=== PATIENT | male | born 1935 | race Caucasian/White ===

== ENCOUNTER → 2016-04-11 | Outpatient (CLI) | payer MEDICARE, OTHER ==
--- NOTE | 2016-04-11 10:39 | RAD ---
EXAM DESCRIPTION: XR KNEE 4 OR MORE VIEWS CLINICAL HISTORY: 80 y/o ,M, PAIN IN LEFT KNEE COMPARISON: None. IMPRESSION: Three views of the left knee demonstrate tricompartment degenerative change most pronounced within the lateral compartment of the left knee and along the lateral facet of the patellofemoral joint. Osteophyte formation is noted. No evidence of fracture or osseous lesion. Small joint effusion noted. Electronically signed by: Jose Angel Pereira MD 04/11/2016 10:38
--- NOTE | 2016-04-11 10:41 | RAD ---
EXAM DESCRIPTION: Pelvis series. CLINICAL HISTORY: Left hip pain COMPARISON: None. TECHNIQUE: One view was submitted for evaluation. FINDINGS: The pelvic ring is intact on today's study. Right hip arthroplasty. 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 Left hip joint space is grossly unremarkable. Mild degenerative change of the lower lumbar spine. IMPRESSION: The joint space of the left hip is fairly preserved on today's AP radiograph of pelvis. No osteophyte formation. Electronically signed by: Jose Angel Pereira MD 04/11/2016 10:39
== END | disposition home or self-care (01) ==
LOC: RAD 09:24
PROVIDERS: ATTEND Orthopaedic Surgery
DX: M25.562 Pain in left knee (principal); M25.552 Pain in left hip

== ENCOUNTER 2016-05-27 20:13 | Emergency (ER) | payer MEDICARE, OTHER ==
[2016-05-27 20:35] VITALS: O2SAT 98
--- NOTE | 2016-05-27 20:47 | ED.PDOC ---
History of Present Illness - General Chief Complaint: Lower Extremity Injury Stated Complaint: right hip pain Time Seen by Provider: 05/27/16 20:20 Source: patient, RN notes reviewed, Vital Signs reviewed, family Exam Limitations: no limitations - History of Present Illness Initial Comments: Patient reports at about 6pm this evening he missed a step and fell onto his right hip. HE had pain but not bad so went ahead and went to [place] this evening. The pain got progressively worse and he had a hip replacement on that side so he came in to get it checked. He was ambulatory. No numbness or tingling. Occurred: this evening Pain - Lower Extremity: moderate: Left Thigh/Hip Method of Injury: fell Improving Factors: rest Worsening Factors: movement Allergies/Adverse Reactions: Allergies NO KNOWN ALLERGY Allergy (Verified 01/31/15 09:06) Home Medications: Ambulatory Orders Bimatoprost 0.01% Opth [Lumigan Opth [place]] 2.5 ml OPHTH BEDTIME 01/31/15 Calcium Citrate-Vitamin D [Calcium Citrate W/Vitamin 250-50 mg-Unit] 1 tab PO BID 01/31/15 Carbidopa-Levodopa [Carbidopa/Levodopa 25-100 mg] 1 tab PO TIDFD 01/31/15 Dutasteride [Avodart] 0.5 mg PO BEDTIME 01/31/15 Multiple Vitamins W/ Minerals [Preservision Areds 2] 1 cap PO BID 01/31/15 Tamsulosin [Flomax] 0.4 mg PO BID 01/31/15 Aspirin [Aspirin Adult Low Dose] 81 mg PO 05/27/16 Proscar 05/27/16 Review of Systems - Review of Systems Constitutional: States: no symptoms reported EENTM: States: no symptoms reported Respiratory: States: no symptoms reported Cardiology: States: no symptoms reported Gastrointestinal/Abdominal: States: no symptoms reported Musculoskeletal: States: see HPI, joint pain Skin: States: no symptoms reported Neurological: States: no symptoms reported. Denies: numbness, paresthesia, tingling, weakness Endocrine: States: no symptoms reported Hematologic/Lymphatic: States: no symptoms reported Past Medical History (General) - Patient Medical History Hx Stroke: No Hx Cardiac Disorders: No Hx Congestive Heart Failure: No Hx Diabetes: No Hx Cancer: No Hx Hepatitis C: No Hx MRSA: Yes - 2016 Arm MRSA Source:: Wound Surgical History: tonsillectomy - Vaccination History Hx Influenza Vaccination: Yes Hx Pneumococcal Vaccination: Yes - Social History Hx Tobacco Use: No Hx Alcohol Use: No Hx Substance Use: No Hx Substance Use Treatment: No Hx Depression: No Hx Physical Abuse: No Hx Emotional Abuse: No Hx Suspected Abuse: No - Female History Patient : No - Triage Comment ED Triage Comment: fell onto rt hip, ambulatory for awhile, then pain increased Family Medical History - Family History Mother Family History: Unknown Living Status: Physical Exam - Physical Exam General Appearance: Alert, Comfortable, No apparent distress, Well Developed, Well Groomed, Well Hydrated, Well Nourished Neck: full range of motion, supple, normal inspection Cardiovascular/Respiratory: normal peripheral pulses, no respiratory distress Thigh/Hip: bone tenderness - Right mid thigh, limited ROM - due to pain, pain Leg: normal inspection, non-tender, no evidence of injury, normal ROM Knee: normal inspection, non-tender, no evidence of injury, normal ROM Ankle: normal inspection, non-tender, no evidence of injury, normal ROM Foot: normal inspection, non-tender, no evidence of injury, normal ROM Neuro/Tendon: normal sensation, normal motor functions, normal tendon functions Mental Status: alert, oriented x 3 Skin: normal color, warm/dry Progress - Progress Progress: 05/27/16 21:09 Discussed results with patient and . Will treat conservatively at home with ice and OTC pain medications. - EKG/XRAY/CT XRAY: hip - negative, no acute findings. Departure - Departure Clinical Impression: Contusion of hip or thigh, right Time of Disposition: 21:10 Disposition: Discharge to Home or Self Care Condition: Good Departure Forms: ED Discharge - Pt. Copy, Patient Portal Self Enrollment Instructions: DI for Contusion Diet: resume usual diet Activity: increase activity as tolerated Referrals: Andrea Day MD [Primary Care Provider] - 1-5 Days Home Medications: Ambulatory Orders Bimatoprost 0.01% Opth [Lumigan Opth [place]] 2.5 ml OPHTH BEDTIME 01/31/15 Calcium Citrate-Vitamin D [Calcium Citrate W/Vitamin 250-50 mg-Unit] 1 tab PO BID 01/31/15 Carbidopa-Levodopa [Carbidopa/Levodopa 25-100 mg] 1 tab PO TIDFD 01/31/15 Dutasteride [Avodart] 0.5 mg PO BEDTIME 01/31/15 Multiple Vitamins W/ Minerals [Preservision Areds 2] 1 cap PO BID 01/31/15 Tamsulosin [Flomax] 0.4 mg PO BID 01/31/15 Aspirin [Aspirin Adult Low Dose] 81 mg PO 05/27/16 Proscar 05/27/16
--- NOTE | 2016-05-27 21:04 | RAD ---
PROCEDURE: Hip,Right 2 Views Clinical History: fell onto hip Indication: Same as above Comparison: 02/01/2015. Technique: 2.0 views of the right hip. Findings: There is no evidence of acute fractures or dislocations involving the bones of the right hip joint and the adjacent pelvic bones. There is intact right hip arthroplasty Impression: Negative for acute findings involving the right hip. Location of Interpretation: Teleradiology Electronically signed by: Karsten Das MD 05/27/2016 9:04 PM CDT
[2016-05-27 21:30] VITALS: BP 145/80
[2016-05-27 21:31] VITALS: TEMP 97
== END 2016-05-27 21:31 | disposition home or self-care (01) ==
LOC: ER 20:13
DX: S70.01XA Contusion of right hip, initial encounter (principal); S70.11XA Contusion of right thigh, initial encounter; Z96.641 Presence of right artificial hip joint; Z79.899 Other long term (current) drug therapy; Z79.82 Long term (current) use of aspirin; Z86.14 Personal history of Methicillin resistant Staphylococcus aureus infection; W10.9XXA Fall (on) (from) unspecified stairs and steps, initial encounter; Y92.9 Unspecified place or not applicable

== ENCOUNTER 2017-02-12 13:27 | Emergency (ER) | payer MEDICARE, OTHER ==
--- NOTE | 2017-02-12 13:53 | RAD ---
EXAM DESCRIPTION: Chest,2 Views CLINICAL HISTORY: food bolus COMPARISON: February 02, 2011 TECHNIQUE: PA/lateral FINDINGS: The lungs are well expanded and clear. No infiltrates or effusions or masses are noted. The heart is normal in size and shape with no evidence of vascular congestion. Aortic arch and descending aorta is tortuous The inder and mediastinum demonstrate normal contours. A moderate hiatal hernia with an air-fluid level in the retrocardiac region is unchanged from 2011 study. The bony spine and chest wall is normal for age in appearance. IMPRESSION: No acute cardiopulmonary disease with a persistent large retrocardiac hiatal hernia with air-fluid level, unchanged from 2011. Electronically signed by: Alcon Dunn MD 02/12/2017 1:51 PM [employer]TACT WORK[employer]
--- NOTE | 2017-02-12 13:54 | RAD ---
EXAM DESCRIPTION: Neck,Soft Tissue CLINICAL HISTORY: 81 years Male, food bolus COMPARISON: None. FINDINGS: Soft tissue views of the neck demonstrate advanced degenerative disc disease at C5-6 and C6-7 with posterior bony ridging at C6-7. The airway and soft tissues of the hypopharynx and larynx and proximal trachea appear unremarkable. No prevertebral soft tissue swelling or mass is seen. IMPRESSION: Multiple examination. Electronically signed by: Alcon Dunn MD 02/12/2017 1:53 PM PROSTHODONTIST/OWNER
--- NOTE | 2017-02-12 13:55 | RAD ---
EXAM DESCRIPTION: XR ABDOMEN 1 VIEW (KUB) CLINICAL HISTORY: food bolus COMPARISON: None Available. TECHNIQUE: KUB FINDINGS: A single view of the abdomen demonstrates moderate amount of stool throughout the colon without eduard fecal impaction or an no evidence of small bowel obstruction. Prior right hip replacement is noted with moderate degenerative changes in the lumbar spine. No soft tissue masses or unusual calculi noted. IMPRESSION: Negative examination. Electronically signed by: Alcon Dunn MD 02/12/2017 1:54 PM LENS MOUNTER
[2017-02-12 14:05] VITALS: TEMP 97.3
--- NOTE | 2017-02-12 14:29 | ED.PDOC ---
History of Present Illness - General Chief Complaint: ENT Problem Stated Complaint: food stuck in throat Time Seen by Provider: 02/12/17 13:27 Source: patient, RN notes reviewed, Vital Signs reviewed, family Exam Limitations: no limitations Additional Information: At [facility] [employer] [place] today - salad, roast beef, and cake. Feels food is stuck. Has been able to cough and regurgitate some food particles but he still feels the food is stuck. No respiratory distress. - History of Present Illness Timing/Duration: abrupt Severity: moderate EENT Location: throat Prearrival Treatment: no prearrival treatment Improving Factors: nothing Worsening Factors: nothing Associated Symptoms: denies symptoms Allergies/Adverse Reactions: Allergies NO KNOWN ALLERGY Allergy (Verified 02/12/17 14:06) Home Medications: Ambulatory Orders Bimatoprost 0.01% Ophth [Lumigan Ophth [place]] 2.5 ml OPHTH BEDTIME 01/31/15 Calcium Citrate-Vitamin D [Calcium Citrate W/Vitamin 250-50 mg-Unit] 1 tab PO BID 01/31/15 Carbidopa-Levodopa [Carbidopa/Levodopa 25-100 mg] 1 tab PO TIDFD 01/31/15 Dutasteride [Avodart] 0.5 mg PO BEDTIME 01/31/15 Multiple Vitamins W/ Minerals [Preservision Areds 2] 1 cap PO BID 01/31/15 Tamsulosin [Flomax] 0.4 mg PO BID 01/31/15 Aspirin [Aspirin Adult Low Dose] 81 mg PO 05/27/16 Proscar 05/27/16 Review of Systems - Review of Systems Constitutional: States: no symptoms reported EENTM: States: no symptoms reported Respiratory: States: no symptoms reported Cardiology: States: no symptoms reported Gastrointestinal/Abdominal: States: see HPI Genitourinary: States: no symptoms reported Musculoskeletal: States: no symptoms reported Skin: States: no symptoms reported Neurological: States: no symptoms reported Endocrine: States: no symptoms reported Hematologic/Lymphatic: States: no symptoms reported Past Medical History (General) - Patient Medical History Hx Stroke: No Hx Cardiac Disorders: No Hx Congestive Heart Failure: No Hx Diabetes: No Hx Cancer: No Hx Hepatitis C: No Hx MRSA: Yes - 2016 Arm Hx Other PMH: Yes - BPH, Parkinson's MRSA Source:: Wound Surgical History: other - Vaccination History Hx Influenza Vaccination: Yes Hx Pneumococcal Vaccination: Yes - Social History Hx Tobacco Use: No Hx Alcohol Use: No Hx Substance Use: No Hx Substance Use Treatment: No Hx Depression: No Hx Physical Abuse: No Hx Emotional Abuse: No Hx Suspected Abuse: No - Female History Patient : No Family Medical History - Family History Mother Family History: Unknown Living Status: Physical Exam - Physical Exam General Appearance: Alert, Anxious, No apparent distress Eye Exam: bilateral normal Nasal Exam: normal inspection Throat Exam: normal mouth inspection - controlling secretions for the most part. Unable to drink liquids. Neck: full range of motion, supple Cardiovascular/Respiratory: regular rate, rhythm, no respiratory distress Neurologic: hadoop admin II-XII nml as tested, no motor/sensory deficits, alert, oriented x 3 Skin Exam: normal color Progress - Progress Progress: 02/12/17 15:39 Attempted Glucagon 1 mg IV, Zofran 4 mg IV, and 500 ml NS IV bolus with no improvement. Patient needs to be transferred to facility with an endoscopist. Departure - Departure Clinical Impression: Food in esophagus causing other injury, sequela Time of Disposition: 15:40 Disposition: Discharge to Home or Self Care Condition: Fair Departure Forms: ED Discharge - Pt. Copy, Patient Portal Self Enrollment Instructions: DI for Ear Pain-Adult Referrals: Andrea Day MD [Primary Care Provider] - 1-5 Days Home Medications: Ambulatory Orders Bimatoprost 0.01% Ophth [Lumigan Ophth [place]] 2.5 ml OPHTH BEDTIME 01/31/15 Calcium Citrate-Vitamin D [Calcium Citrate W/Vitamin 250-50 mg-Unit] 1 tab PO BID 01/31/15 Carbidopa-Levodopa [Carbidopa/Levodopa 25-100 mg] 1 tab PO TIDFD 01/31/15 Dutasteride [Avodart] 0.5 mg PO BEDTIME 01/31/15 Multiple Vitamins W/ Minerals [Preservision Areds 2] 1 cap PO BID 01/31/15 Tamsulosin [Flomax] 0.4 mg PO BID 01/31/15 Aspirin [Aspirin Adult Low Dose] 81 mg PO 05/27/16 Proscar 05/27/16 Additional Instructions: GO to [facility] for Endoscopist. Transfer to Outside Facility - Transfer Information Accepting Provider:: Dr. Rey Medina Accepting Facility: [facility] Reason for Transfer: required specialist not available - Endoscopist to assess for food bolus
[2017-02-12] MEDS ORDERED: ONDANSETRON INJ 4 MG/2 ML VIAL IV ONE (14:31)
[2017-02-12] MEDS ORDERED: SODIUM CHLORIDE 0.9% 1000ML 500 ML IVS ONE (14:32)
[2017-02-12] MEDS ORDERED: GLUCAGON INJ 1 MG VIAL IV ONE (14:32)
[2017-02-12 16:12] VITALS: BP 139/80; O2SAT 96
== END 2017-02-12 16:12 | disposition short-term general hospital (02) ==
LOC: ER 13:27
DX: T18.128A Food in esophagus causing other injury, initial encounter (principal); G20 Parkinson's disease; Z86.14 Personal history of Methicillin resistant Staphylococcus aureus infection
CPT/HCPCS: 70360; 71020; 74000; J1610; J2405; J7030

== ENCOUNTER → 2017-05-21 | Outpatient (CLI) | payer MEDICARE, OTHER | LOC: LAB.O 14:22 | PROVIDERS: ATTEND Urology | DX: R31.0 Gross hematuria (principal) ==

== ENCOUNTER 2018-01-29 14:48 | Inpatient (IN) | payer MEDICARE, OTHER ==
[2018-01-29] MEDS ORDERED: MORPHINE SULFATE INJ 10 MG/ML VIAL IV ONE (15:11)
--- NOTE | 2018-01-29 15:24 | RAD ---
EXAM DESCRIPTION: Left knee, 2 views CLINICAL HISTORY: Fall injury. Knee pain FINDINGS/ IMPRESSION: Tricompartmental joint space narrowing. Marginal osteophytes lateral tibia. Severe arthrosis patellofemoral with small region of subchondral cystic change in the patella. Prominent marginal osteophytes. Minimal suprapatellar fluid No fracture Electronically signed by: Alcon Sepulveda MD 01/29/2018 3:23 PM [facility]
--- NOTE | 2018-01-29 15:25 | RAD ---
EXAM DESCRIPTION: Was, single view CLINICAL HISTORY: Fall injury with hip pain FINDINGS/ IMPRESSION: Transcervical left femoral neck fracture, Garden type IV Right hip arthroplasty without acute periprosthetic fracture or osteolysis No acute fracture of the pelvis. Mild osteoarthritis of the sacroiliac joints Electronically signed by: Alcon Sepulveda MD 01/29/2018 3:24 PM [facility]
--- NOTE | 2018-01-29 15:27 | RAD ---
EXAM DESCRIPTION: Hip,Left 2 Views CLINICAL HISTORY: fall with pain COMPARISON: None. TECHNIQUE: 2 views left FINDINGS: The pelvis is imaged is intact. A left femoral neck fracture is demonstrated. The hip is in slight varus. Soft tissue swelling is observed adjacent to the hip. Degenerative changes are observed in the lower lumbar spine. IMPRESSION: Left femoral neck fracture. Electronically signed by: Cruz Clark MD 01/29/2018 3:25 PM [facility]
--- NOTE | 2018-01-29 15:56 | ED.PDOC ---
History of Present Illness - General Chief Complaint: Lower Extremity Injury Stated Complaint: fall left hip pain Time Seen by Provider: 01/29/18 14:54 Source: patient, family Exam Limitations: no limitations - History of Present Illness Initial Comments: The patient is a 82-year-old male presenting to the emergency room secondary to a fall at home. He went on his left side and has pain in his left hip. He does have a history of Parkinson's and has had multiple frequent falls in the past.no other areas of pain. He did not hit his head. He is pleasant and cooperative. Timing/Duration: momentarily Severity: severe Improving Factors: immobilization Worsening Factors: movement Associated Symptoms: denies symptoms Allergies/Adverse Reactions: Allergies NO KNOWN ALLERGY Allergy (Verified 02/12/17 14:06) Home Medications: Ambulatory Orders Bimatoprost 0.01% Ophth [Lumigan Ophth [place]] 2.5 ml OPHTH BEDTIME 01/31/15 Calcium Citrate-Vitamin D [Calcium Citrate W/Vitamin 250-50 mg-Unit] 1 tab PO BID 01/31/15 Carbidopa-Levodopa [Carbidopa/Levodopa 25-100 mg] 1 tab PO TIDFD 01/31/15 Dutasteride [Avodart] 0.5 mg PO BEDTIME 01/31/15 Multiple Vitamins W/ Minerals [Preservision Areds 2] 1 cap PO BID 01/31/15 Tamsulosin [Flomax] 0.4 mg PO BID 01/31/15 Aspirin [Aspirin Adult Low Dose] 81 mg PO 05/27/16 Proscar 05/27/16 Review of Systems - Review of Systems Constitutional: States: no symptoms reported EENTM: States: no symptoms reported Respiratory: States: no symptoms reported Cardiology: States: no symptoms reported Gastrointestinal/Abdominal: States: no symptoms reported Genitourinary: States: no symptoms reported Musculoskeletal: States: see HPI Skin: States: no symptoms reported Neurological: States: see HPI Endocrine: States: no symptoms reported All other Systems: No Change from Baseline Past Medical History (General) - Patient Medical History Hx Stroke: No Hx Asthma: No Hx of COPD: No Hx Cardiac Disorders: No Hx Congestive Heart Failure: No Hx Thyroid Disease: No Hx Diabetes: No Hx Renal Disease: No Hx Cancer: No Hx of HIV: No Hx Hepatitis C: No Hx MRSA: No MRSA Source:: Wound - Vaccination History Hx Tetanus, Diphtheria Vaccination: Yes Hx Influenza Vaccination: Yes Hx Pneumococcal Vaccination: Yes Immunizations Up to Date: No - Social History Hx Tobacco Use: No Hx Chewing Tobacco Use: No Hx Alcohol Use: No Hx Substance Use: No Hx Substance Use Treatment: No Hx Depression: No Feels Threatened In Home Enviroment: No Feels Threatened In a Relationship: No Hx Physical Abuse: No Hx Emotional Abuse: No Hx Suspected Abuse: No - Female History Patient is a Female of Child Bearing Age (10 -59 yrs old): No Patient : No Family Medical History - Family History Mother Family History: Unknown Living Status: Hx Family Asthma: No Hx Family Congestive Heart Failure: No Physical Exam - Physical Exam General Appearance: Alert, Obvious distress Eye Exam: bilateral normal Ears, Nose, Throat: hearing grossly normal, normal ENT inspection, normal pharynx Neck: non-tender, supple Respiratory: lungs clear, normal breath sounds, no respiratory distress, no accessory muscle use Cardiovascular/Chest: normal peripheral pulses, regular rate, rhythm, no edema Peripheral Pulses: radial,right: 2+, radial,left: 2+, dorsalis pedis,right: 2+, dorsalis pedis,left: 2+ Gastrointestinal/Abdominal: non tender, soft Rectal Exam: deferred Back Exam: no CVA tenderness, no vertebral tenderness Extremity: no pedal edema, no calf tenderness, normal capillary refill, other - left hip painwith palpation and movement Neurologic: house carpenter helper II-XII nml as tested, alert, normal mood/affect, oriented x 3, other - movement issues related to Parkinson's Skin Exam: normal color Comments: Vital Signs - 24 hr 01/29/18 15:00 Temperature 97 F L Respiratory 20 Rate Blood Pressure 181/88 [Left Arm] O2 Sat by Pulse 97 Oximetry Progress - Progress Progress: 01/29/18 15:56 the patient is an 82-year-old male presenting to the emergency room secondary to a fall at home. He appears to have sustained a transcervical left femoral neck fracture Garden type IV, according to the imaging report. The patient has received IV pain medications. Laboratory workup for preoperative purposes being performed. Admit for pain management and subsequent repair. Orthopedics has been consulted. - Results/Orders Results/Orders: Laboratory Tests 01/29/18 15:37 WBC 8.1 RBC 4.29 L Hgb 12.9 L Hct 39.2 L MCV 91.3 MCH 30.0 MCHC 33.0 RDW 14.7 H Plt Count 294 MPV 8.1 Absolute Neuts (auto) 6.10 Absolute Lymphs (auto) 1.20 Absolute Monos (auto) 0.50 Absolute Eos (auto) 0.10 Absolute Basos (auto) 0.10 Neutrophils % 76.0 Lymphocytes % 15.3 L Monocytes % 6.8 Eosinophils % 1.2 Basophils % 0.7 other laboratory work is still pending. EKG shows a bifascicular block. Rate is 62 bpm QT interval is borderline at 462. Departure - Departure Clinical Impression: Left displaced femoral neck fracture Disposition: Admit Patient Home Medications: Ambulatory Orders Bimatoprost 0.01% Ophth [Lumigan Ophth [place]] 2.5 ml OPHTH BEDTIME 01/31/15 Calcium Citrate-Vitamin D [Calcium Citrate W/Vitamin 250-50 mg-Unit] 1 tab PO BID 01/31/15 Carbidopa-Levodopa [Carbidopa/Levodopa 25-100 mg] 1 tab PO TIDFD 01/31/15 Dutasteride [Avodart] 0.5 mg PO BEDTIME 01/31/15 Multiple Vitamins W/ Minerals [Preservision Areds 2] 1 cap PO BID 01/31/15 Tamsulosin [Flomax] 0.4 mg PO BID 01/31/15 Aspirin [Aspirin Adult Low Dose] 81 mg PO 05/27/16 Proscar 05/27/16 Decision To Admit - Decistion To Admit Decision to Admit Reason: Medical Nature Decision to Admit Date: 01/29/18 Decision to Admit Time: 15:58
--- NOTE | 2018-01-29 16:42 | HP ---
SUPERVISING PHYSICIAN: Alcon Bautista MD CHIEF COMPLAINT: Left hip pain. HISTORY OF PRESENT ILLNESS: This is an 82 male patient who was in his garage today. There was some wrinkled carpet in there and he tripped over it and fell onto his left side. He had pain in the left hip. He has a significant history of Parkinson's as well as multiple falls. He actually just retuned from a bus trip for 9 days in the [place] area. He fell while on the trip but did not hurt himself. He did not hit his head. He was brought to the hospital for evaluation. In the Emergency Room, laboratory was done and showed a sodium of 132, potassium 4. chloride 96, carbon dioxide 26, BUN 17, creatinine 0.79. His serum osmolality was 266.4. Liver enzymes were within normal limits. His urinalysis was within normal limits except he did have 40 urine ketones. CBC showed a white count of 8,100, hemoglobin 12.9, hematocrit 39.2. Chest x-ray showed hiatal hernia with mild pulmonary edema, likely was exaggerated by low lung volume, mild cardiomegaly. Pelvic x-ray shows a transcervical femoral neck fracture, Garden type IV and a right hip arthroplasty without acute periprosthetic fracture or osteolysis. No acute fracture of the pelvis. Mild osteoarthritis of the sacroiliac joints. His left knee x-ray shows no fracture and his hip x-ray shows left femoral neck fracture. Dr. Hill was called from the Emergency Room and agreed to see the patient after admission and I was called to admit the patient to the hospital. PAST MEDICAL HISTORY: 1. Benign prostatic hypertrophy. 2. Parkinson's. 3. Osteoarthritis. 4. Macular degeneration. 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 6. History of lumbar spine osteoarthritis and associated symptoms. PAST SURGICAL HISTORY: 1. Right hip surgery. 2. Right arm surgery. 3. Hernia repair. 4. Adenoidectomy. 5. Bilateral cataract removal. CURRENT MEDICATIONS: Per the EMR and awaiting verification. ALLERGIES: No known drug allergies. SOCIAL HISTORY: He is retired. He has never smoked and denies any ETOH or illicit drug use. REVIEW OF SYSTEMS: Unremarkable except as per history of present illness. PHYSICAL EXAMINATION: VITAL SIGNS: He is afebrile. Heart rate 79, blood pressure 166/80, respiratory rate 20, 02 saturation 93% on room air. GENERAL: This is an 82 year-old male patient lying in his hospital bed. He is in no acute disease. HEENT: Normocephalic and atraumatic. Pupils are equal and reactive. Oropharynx is clear. NECK: Supple without mass. CHEST: Essentially clear to auscultation bilaterally. There is equal rise and fall of the chest with inspiration and expiration. CARDIOVASCULAR: Regular rate and rhythm. ABDOMEN: Soft, nondistended, non-tender. Bowel sounds are positive. EXTREMITIES: He has some pain to palpation over the left lateral hip area. There is no bruising at this time. Bilateral pedal pulses are palpable at +2. NEUROLOGIC: He is awake, alert, and oriented x3. Labs and films are as per the history of present illness. ASSESSMENT: 1. Left femoral neck fracture after same level fall awaiting surgical intervention per Dr. Weinberg, orthopedic surgeon. 2. History of Parkinson's disease. 3. Osteoarthritis. 4. History of benign prostatic hypertrophy. 5. 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 PLAN: We will admit the patient to the hospital. I have initiated Dr. Hill's preoperative order for surgery that is expected to be tomorrow. I have made him n.p.o. at midnight with fluids of D5 normal saline at 100. I have also contacted social sciences lecturer as his will be having surgery in [place] on Friday per Dr. Zuniga. He does have [facility]. I have also ordered some morphine for hs pain control and plan to see patient postoperative procedure tomorrow. We will restart his home medications after they are verified. We will continue t9o monitor the patient closely and follow as needed. Dr. Bautista is the collaborating physician and available for consultation. #[id number]
[2018-01-29] MEDS ORDERED: ceFAZolin SODIUM 2 GM in SODIUM CHLORIDE 0.9% 100ML 100 ML IVPB ONE (17:23)
[2018-01-29] MEDS ORDERED: diphenhydrAMINE HCL 50 MG/ML VIAL IV ONE (17:27)
[2018-01-29] MEDS ORDERED: ACETAMINOPHEN 325 MG TAB PO ONE (17:27)
[2018-01-29] MEDS ORDERED: ONDANSETRON INJ 4 MG/2 ML VIAL IV PRN (17:30)
[2018-01-29] MEDS ORDERED: SODIUM CHLORIDE 0.9% 500ML 500 ML IVS SCH (17:30)
[2018-01-29] MEDS ORDERED: diphenhydrAMINE HCL 25 MG CAP ONE (17:48)
--- NOTE | 2018-01-29 18:06 | RAD ---
EXAM DESCRIPTION: Chest,1 View CLINICAL HISTORY: Pre-Op COMPARISON: 02/12/2017. FINDINGS: Lung volumes are low. Cardiac silhouette is mildly enlarged. There is a probable moderate hiatal hernia again seen. No pneumothorax. There is mild bilateral increased pulmonary edema. No focal consolidation, accounting for the probable hiatal hernia. IMPRESSION: Hiatal hernia. Mild pulmonary edema is likely exaggerated by low lung volumes. Mild cardiomegaly. Electronically signed by: Greyson Camejo 01/29/2018 6:05 PM [facility]
[2018-01-29] MEDS ORDERED: MORPHINE SULFATE INJ 10 MG/ML VIAL ONE (19:48)
[2018-01-29] MEDS: MORPHINE SULFATE INJ 10 MG/ML VIAL IV PRN ×2 (19:55→22:20)
[2018-01-29] MEDS ORDERED: VANCOMYCIN HCL INJ 1,000 MG in SODIUM CHLORIDE 0.9% 250ML 250 ML IVPB ONE (20:00)
[2018-01-29] MEDS: IV SET AND CAP CHANGE INJ INJ SCH (21:23)
[2018-01-29] MEDS: DEX 5% W/NACL 0.9% 1000ML 1,000 ML IVS PRN (22:19)
[2018-01-29] MEDS ORDERED: BACITRACIN 0.9 GM UD PCKT ONE (22:42)
[2018-01-30] MEDS ORDERED: VANCOMYCIN HCL INJ 1,000 MG in SODIUM CHLORIDE 0.9% 250ML 250 ML IVPB ONE (07:00)
[2018-01-30] MEDS ORDERED: ceFAZolin SODIUM 2 GM in SODIUM CHLORIDE 0.9% 100ML 100 ML IVPB ONE (07:00)
[2018-01-30] MEDS ORDERED: PHENYLEPHRINE INJ 1ML 10 MG/ML VIAL ONE (07:00)
[2018-01-30] MEDS ORDERED: ePHEDrine SULF 50 MG/ML ONE (07:00)
[2018-01-30] MEDS ORDERED: raNITIdine HCL INJ 25 MG/ML VIAL ONE (07:00)
[2018-01-30] MEDS ORDERED: PROPOFOL 200 MG/20 ML VIAL IV ONE (07:00)
[2018-01-30] MEDS ORDERED: METOCLOPRAMIDE HCL INJ 10 MG/2 ML VIAL ONE (07:00)
[2018-01-30] MEDS ORDERED: TRANEXAMIC ACID 1,000 MG/10 ML VIAL IV ONE (07:00)
[2018-01-30] MEDS ORDERED: SODIUM CHLORIDE 0.9% 50 ML VIAL ONE (07:00)
[2018-01-30] MEDS ORDERED: DEXAMETHASONE INJ 10 MG/ML VIAL ONE (07:00)
[2018-01-30] MEDS ORDERED: ceFAZolin SODIUM 2 GRAMS PREMI 50 ML IVPB ONE (07:45)
[2018-01-30] MEDS ORDERED: VANCOMYCIN HCL INJ 1,000 MG VIAL IVPB ONE ×2 (07:45→16:38)
[2018-01-30] MEDS ORDERED: SODIUM CHLORIDE 0.9% 250ML 250 ML ONE ×2 (07:45→16:38)
[2018-01-30] MEDS: MORPHINE SULFATE INJ 10 MG/ML VIAL IV PRN (08:18)
[2018-01-30] MEDS ORDERED: ceFAZolin SODIUM 1 GM VIAL ONE ×3 (08:34→20:29)
[2018-01-30] MEDS ORDERED: SODIUM CHLORIDE 0.9% 100ML 100 ML IVPB ONE (09:05)
[2018-01-30] MEDS ORDERED: TRANEXAMIC ACID 1,000 MG/10 ML VIAL ONE ×2 (09:05)
[2018-01-30] MEDS ORDERED: fentaNYL CITRATE INJ 50 MCG/ML AMP ONE (09:06)
[2018-01-30] MEDS ORDERED: MORPHINE SULF *EPIDURAL* 1 MG/ML VIAL ONE (09:06)
[2018-01-30] MEDS ORDERED: MIDAZOLAM INJ 2 MG/2 ML VIAL ONE (09:06)
[2018-01-30] MEDS ORDERED: BUPIVACAINE 0.5% 30 ML VIAL INJ ONE (09:07)
[2018-01-30] MEDS ORDERED: ELECTROLYTE-A 1,000 ML IVS ONE ×3 (09:19→11:38)
[2018-01-30] MEDS ORDERED: ACETAMINOPHEN IV 1000MG 100 ML ONE (09:46)
[2018-01-30] MEDS ORDERED: KETAMINE HCL 100 MG/ML VIAL ONE (09:50)
[2018-01-30] MEDS: ceFAZolin SODIUM 1 GM VIAL ONE ×2 (10:24→11:27)
[2018-01-30] MEDS: VANCOMYCIN HCL INJ 1,000 MG VIAL IVPB ONE ×2 (10:36→11:27)
[2018-01-30] MEDS: BUPIVACAINE LIPOSOME 13.3 MG/ML VIAL INJ ONE ×2 (10:38→11:35)
[2018-01-30] MEDS: BUPIVACAINE 0.5% 30 ML VIAL INJ ONE ×2 (10:38→11:35)
[2018-01-30] MEDS ORDERED: ceFAZolin SODIUM 2 GRAMS PREMI 2 GM in PREMIX BAG 1 BAG IVPB SCH ×2 (12:15→16:00)
[2018-01-30] MEDS ORDERED: VANCOMYCIN HCL INJ 1,000 MG in SODIUM CHLORIDE 0.9% 250ML 250 ML IVPB SCH (12:30)
[2018-01-30] MEDS ORDERED: ENOXAPARIN SODIUM 30 MG/0.3 ML SYG SUBCU SCH (12:30)
--- NOTE | 2018-01-30 13:04 | RAD ---
EXAM DESCRIPTION: Hip,Left 2 Views CLINICAL HISTORY: post op COMPARISON: January 29, 2018 IMPRESSION: 2 views of the left hip show interval postsurgical changes from hip arthroplasty with cement fixation of the femoral component. No complicating features are seen. Mild soft tissue emphysema from recent surgery is noted. Electronically signed by: Jose Martinez MD 01/30/2018 1:03 PM [facility] [[email or web address]]
[2018-01-30] MEDS ORDERED: MORPHINE SULFATE INJ 10 MG/ML VIAL IM PRN (13:52)
[2018-01-30] MEDS ORDERED: PROMETHAZINE HCL INJ 12.5 MG in SODIUM CHLORIDE 0.9% 50ML 50 ML IVPB PRN (13:52)
[2018-01-30] MEDS ORDERED: NALOXONE HCL INJ 0.4 MG/ML VIAL IV PRN (13:52)
[2018-01-30] MEDS ORDERED: PROMETHAZINE HCL INJ 25 MG in SODIUM CHLORIDE 0.9% 50ML 50 ML IVPB PRN (13:52)
[2018-01-30] MEDS ORDERED: ACETAMINOPHEN 500 MG TAB PO PRN (13:52)
[2018-01-30] MEDS ORDERED: MORPHINE SULFATE INJ 10 MG/ML VIAL IV PRN (13:52)
[2018-01-30] MEDS ORDERED: MORPHINE PCA 1 MG/ML 100 ML BAG IVPB SCH (14:00)
[2018-01-30] MEDS ORDERED: IV SET AND CAP CHANGE INJ INJ SCH (14:00)
[2018-01-30] MEDS ORDERED: ceFAZolin SODIUM 1 GM in SODIUM CHL 0.9% 50ML MIN-BAG+ 50 ML IVPB SCH (16:00)
--- NOTE | 2018-01-30 16:04 | RAD ---
EXAM DESCRIPTION: Pelvis, 1 4 More Views CLINICAL HISTORY: post op COMPARISON: January 29, 2018 IMPRESSION: Single AP view of the pelvis shows interval postsurgical changes from left hip arthroplasty with cement fixation of the femoral component. No complicating features are identified. Right hip bipolar arthroplasty with screw fixation of the acetabular component is again seen. 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 No fracture or dislocation is identified. Electronically signed by: Jose Martinez MD 01/30/2018 4:03 PM [facility]
[2018-01-30] MEDS ORDERED: SODIUM CHL 0.9% 50ML MIN-BAG+ 50 ML IVPB ONE ×2 (16:32→20:29)
[2018-01-30] MEDS: ceFAZolin SODIUM 1 GM in SODIUM CHL 0.9% 50ML MIN-BAG+ 50 ML IVPB SCH (16:44)
[2018-01-30] MEDS: DEX 5% W/NACL 0.9% 1000ML 1,000 ML IVS PRN (16:45)
[2018-01-30] MEDS: VANCOMYCIN HCL INJ 1,000 MG in SODIUM CHLORIDE 0.9% 250ML 250 ML IVPB SCH (18:31)
[2018-01-30] MEDS ORDERED: ENOXAPARIN SODIUM 30 MG/0.3 ML SYG SUBCU ONE (20:28)
[2018-01-30] MEDS: DOCUSATE CALCIUM 240 MG CAP PO SCH (20:52)
[2018-01-30] MEDS: SODIUM CHLORIDE 0.9% (FLUSH) 10 ML SYG IV PRN (20:53)
[2018-01-30] MEDS: ENOXAPARIN SODIUM 30 MG/0.3 ML SYG SUBCU SCH (23:16)
[2018-01-31] MEDS: ceFAZolin SODIUM 1 GM in SODIUM CHL 0.9% 50ML MIN-BAG+ 50 ML IVPB SCH ×2 (01:20→10:30)
[2018-01-31] MEDS ORDERED: VANCOMYCIN HCL INJ 1,000 MG VIAL IVPB ONE (04:20)
[2018-01-31] MEDS ORDERED: SODIUM CHLORIDE 0.9% 250ML 250 ML ONE (04:20)
[2018-01-31] MEDS: VANCOMYCIN HCL INJ 1,000 MG in SODIUM CHLORIDE 0.9% 250ML 250 ML IVPB SCH (06:06)
[2018-01-31] MEDS ORDERED: SODIUM CHL 0.9% 50ML MIN-BAG+ 50 ML IVPB ONE (09:47)
[2018-01-31] MEDS ORDERED: ceFAZolin SODIUM 1 GM VIAL ONE (09:48)
[2018-01-31] MEDS: ENOXAPARIN SODIUM 30 MG/0.3 ML SYG SUBCU SCH ×2 (10:28→22:41)
[2018-01-31] MEDS: MAGNESIUM OXIDE 400 MG TAB PO SCH (10:28)
[2018-01-31] MEDS: HYDROcodone 5MG/APAP 325MG 1 EA TAB PO PRN (10:28)
[2018-01-31] MEDS: CARBIDOPA/LEVODOPA 25/100 1 TAB PO SCH ×2 (13:54→17:57)
[2018-01-31] MEDS: TOLTERODINE TARTRATE ER 4 MG CAP PO SCH (13:54)
[2018-01-31] MEDS: NON-FORMULARY MEDICATION 1 EA MIS (Mirabegron [Myrbetriq] 50 MG) PO SCH (20:43)
[2018-01-31] MEDS: BIMATOPROST 0.01% OPHTH SCH (20:43)
[2018-01-31] MEDS: SODIUM CHLORIDE 0.9% (FLUSH) 10 ML SYG IV PRN (20:44)
[2018-01-31] MEDS: DOCUSATE CALCIUM 240 MG CAP PO SCH (20:44)
[2018-02-01] MEDS ORDERED: CALCIUM CARBONATE-VITAMIN D 500 MG TAB PO SCH (09:00)
[2018-02-01] MEDS ORDERED: SODIUM CHLORIDE 0.9% (FLUSH) 10 ML SYG IV SCH (09:00)
[2018-02-01] MEDS: CALCIUM CARBONATE-VITAMIN D 500 MG TAB PO SCH (09:09)
[2018-02-01] MEDS: CARBIDOPA/LEVODOPA 25/100 1 TAB PO SCH ×3 (09:09→17:02)
[2018-02-01] MEDS: TOLTERODINE TARTRATE ER 4 MG CAP PO SCH (09:09)
[2018-02-01] MEDS: PRESERVISION PO SCH (09:09)
[2018-02-01] MEDS: MAGNESIUM OXIDE 400 MG TAB PO SCH (09:09)
[2018-02-01] MEDS: SODIUM CHLORIDE 0.9% (FLUSH) 10 ML SYG IV SCH ×2 (09:10→21:06)
[2018-02-01] MEDS: ENOXAPARIN SODIUM 30 MG/0.3 ML SYG SUBCU SCH ×2 (11:14→23:12)
[2018-02-01] MEDS: HYDROcodone 5MG/APAP 325MG 1 EA TAB PO PRN (11:14)
--- NOTE | 2018-02-01 16:37 | PN ---
DATE: 01/30/18 SUPERVISING PHYSICIAN: Alcon Bautista M.D. SUBJECTIVE: The patient has just returned from surgery and is still quite lethargic. Intraoperatively his surgery went well. He has no complaints of nausea, vomiting or chest pain right now. His is at the bedside. OBJECTIVE: VITAL SIGNS: Temperature 98, heart rate 75, blood pressure 105/84, respiratory rate 17, O2 sat 94% on 2 liters nasal cannula. RESPIRATORY: Essentially clear to auscultation bilaterally. CARDIAC: Regular rate and rhythm. GASTROINTESTINAL: Abdomen is soft, nondistended, non-tender. Bowel sounds are positive. EXTREMITIES: No clubbing, cyanosis or edema. He does have a dressing to the left lateral hip that is dry and intact. NEUROLOGIC: He is lethargic but answers questions appropriately. LABORATORY: There are no labs or films to report at this time. ASSESSMENT: 1. Left femoral neck fracture after same level fall, surgical intervention per Dr. Lenard Hill, orthopedic surgeon. Postoperative day #0. 2. History of Parkinson's disease. 3. Osteoarthritis. 4. History of benign prostatic hypertrophy. 5. 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 PLAN: We will continue present supportive care. Orthopedic issues will be per Dr. Lenard Hill, orthopedic surgeon. He will start physical therapy for strengthening and conditioning tomorrow. His is having surgery in [place] on Friday, so it may beneficial for him to be discharged from the Acute Care setting and admitted to Swing Bed as he will not have any help at home and his will be recovering from surgery. Otherwise Dr. Hill's routine orders will be continued tomorrow for his postoperative status. We will continue to monitor him closely and follow as needed. Dr. Bautista is the collaborating physician available for consultation. #[id number] and [id number] [facility]
[2018-02-01] MEDS: IV SET AND CAP CHANGE INJ INJ SCH (21:03)
[2018-02-01] MEDS: BIMATOPROST 0.01% OPHTH SCH (21:04)
[2018-02-01] MEDS: DOCUSATE CALCIUM 240 MG CAP PO SCH (21:05)
[2018-02-01] MEDS: NON-FORMULARY MEDICATION 1 EA MIS (Mirabegron [Myrbetriq] 50 MG) PO SCH (21:05)
--- NOTE | 2018-02-01 22:08 | PN ---
DATE: 01/31/18 SUPERVISING PHYSICIAN: Alcon Bautista M.D. SUBJECTIVE: The patient is lying in bed. His is at the bedside. He has no complaints of nausea, vomiting, shortness of breath or chest pain. He did say he has a difficult time with his physical therapy. It was reported that Physical Therapy only got him to walk a few feet and he was maximum assist with 2 patients to get him in and out of bed. OBJECTIVE: VITAL SIGNS: Temperature 98.3, heart rate 81, blood pressure 109/65 , respiratory rate 20, O2 sat is 90%. He has dropped as low as 85% and needed oxygen, and he comes up to 96% on 2 liters nasal cannula. RESPIRATORY: Essentially clear to auscultation bilaterally. CARDIAC: Regular rate and rhythm. GASTROINTESTINAL: Abdomen is soft, nondistended, non-tender. Bowel sounds are positive. EXTREMITIES: No cyanosis, clubbing or edema. Bilateral pedal pulses are palpable at +2. He has a dressing to his left lateral hip that is dry and intact. NEUROLOGIC: He is awake, alert and oriented times three. LABORATORY: CBC shows WBCs of 7.9 with hemoglobin 10.1, hematocrit 30.3. All other labs and films have been reviewed via the EMR. ASSESSMENT: 1. Left femoral neck fracture after same level fall, surgical intervention per Dr. Lenard Hill, orthopedic surgeon, for a left total hip arthroplasty. Postoperative day #1. 2. History of Parkinson's disease. 3. Osteoarthritis. 4. History of benign prostatic hypertrophy. 5. 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 PLAN: We will continue present supportive care. Orthopedic issues will be per Dr. Lenard Hill, orthopedic surgeon. He will continue with physical therapy for strengthening and conditioning. His is having surgery on Friday next week. It my be beneficial for him when he is read for discharge to be discharged from the Acute Care setting and readmitted to Swing Bed as he will need intensive therapy since his is not home to assist him. We will continue to monitor him closely and follow as needed. Dr. Bautista is the collaborating physician available for consultation. #[id number] [facility]
--- NOTE | 2018-02-01 22:21 | PN ---
DATE: 02/01/18 SUPERVISING PHYSICIAN: Alcon Bautista M.D. SUBJECTIVE: The patient is lying in bed. He is very weak. It was reported that it took maximum librarian assistant of 2 nurses to get him to the bedside commode. He complains of weakness but otherwise denies chest pains, shortness of breath, nausea or vomiting. OBJECTIVE: VITAL SIGNS: He is afebrile, heart rate 76, blood pressure 145/77, respiratory rate 18, O2 sat is 96% on room air. RESPIRATORY: Essentially clear to auscultation bilaterally. Somewhat diminished at the bases. CARDIAC: Regular rate and rhythm. EXTREMITIES: He has a dressing to his left lateral hip that is dry and intact. Bilateral pedal pulses are palpable at +2. NEUROLOGIC: He is awake, alert and oriented times three. LABORATORY: There are no labs or films to report at this time. ASSESSMENT: 1. Left femoral neck fracture after same level fall status post total left hip arthroplasty per Dr. Lenard Hill, orthopedic surgeon. Postoperative day #2. 2. History of Parkinson's disease. 3. Osteoarthritis. 4. History of benign prostatic hypertrophy. 5. 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 PLAN: We will continue present supportive care. Orthopedic issues will be per Dr. Lenard Hill, orthopedic surgeon. We will continue with his physical therapy tomorrow for strengthening and conditioning. We are awaiting Physical Therapy for him to be discharged from the Acute Care setting and readmitted to Swing Bed status as he will need several days of strengthening and conditioning due to deconditioned state. I have ordered some routine lab for in the morning. We will continue to monitor him closely and follow as needed. Dr. Bautista is the collaborating physician available for consultation. #[id number] [facility]
--- NOTE | 2018-02-02 07:59 | PN ---
DATE: 01/31/18 SUBJECTIVE: Mr. Lin is doing really well and his pain is well controlled. OBJECTIVE: Afebrile. Vital signs stable. Dressing is clean, dry and intact. ASSESSMENT: Status post hemiarthroplasty. PLAN: The plan at this point is for him to continue with his weightbearing as tolerated status. #[id number] [facility]
--- NOTE | 2018-02-02 08:02 | PN ---
DATE: 02/02/18 SUBJECTIVE: Mr. Lin continues to do well and his pain is well controlled. OBJECTIVE: Afebrile. Vital signs stable. Wound is clean. There is no signs or symptoms of infection. ASSESSMENT: Status post hemiarthroplasty. PLAN: The plan at this point is for him to continue with his current weightbearing status. We will transition him to Swing Bed when he is able to do so. [facility][id number] [facility]
[2018-02-02] MEDS: HYDROcodone 5MG/APAP 325MG 1 EA TAB PO PRN ×3 (08:05→18:45)
[2018-02-02] MEDS: CARBIDOPA/LEVODOPA 25/100 1 TAB PO SCH ×3 (08:05→17:40)
[2018-02-02] MEDS ORDERED: MAGNESIUM SULFATE PREMIX 2GM 2 GM in PREMIX BAG 1 BAG IVPB ONE (08:55)
[2018-02-02] MEDS ORDERED: MAGNESIUM SULFATE PREMIX 2GM 50 ML IVPB ONE (09:48)
[2018-02-02] MEDS: MAGNESIUM OXIDE 400 MG TAB PO SCH (10:15)
[2018-02-02] MEDS: TOLTERODINE TARTRATE ER 4 MG CAP PO SCH (10:17)
[2018-02-02] MEDS: ENOXAPARIN SODIUM 30 MG/0.3 ML SYG SUBCU SCH ×2 (10:17→23:15)
[2018-02-02] MEDS: CALCIUM CARBONATE-VITAMIN D 500 MG TAB PO SCH (10:18)
[2018-02-02] MEDS: PRESERVISION PO SCH (10:18)
[2018-02-02] MEDS: SODIUM CHLORIDE 0.9% (FLUSH) 10 ML SYG IV SCH ×2 (10:18→20:36)
[2018-02-02] MEDS ORDERED: MAGNESIUM HYDROXIDE 30 ML UD ONE (10:27)
--- NOTE | 2018-02-02 14:23 | PN ---
COLLABORATING PHYSICIAN: Kelvin Fang MD SUBJECTIVE: The patient feels okay. He states he really has not walked around a whole lot. The nurses stated they discontinued his Haney catheter, but then he could not go to the bathroom, so they had to replace it. OBJECTIVE: VITAL SIGNS: Blood pressure 108/58. Heart rate 94. Respiratory rate 18. Temperature 98.0. Oxygen saturation 94%. GENERAL: Mr. Lin is an 82-year-old male patient without distress at this time. NEUROLOGIC: Alert and oriented. LUNGS: Clear to auscultation bilaterally. CARDIOVASCULAR: Regular rate and rhythm. Normal S1, S2. ABDOMEN: Soft. Positive bowel sounds. GENITOURINARY: Deferred. EXTREMITIES: Lower extremities with pulses 2+. Capillary refill is less than 2 seconds. Left hip incision is still covered with a dressing. LABORATORY: White count 8.2, hemoglobin 10.4, hematocrit 31.3, platelet count 236. Sodium 126, potassium 3.9, chloride 93, CO2 23, BUN 11, creatinine 0.57, glucose 122, calcium 10.9, magnesium 1.7. ASSESSMENT: 1. Left femoral neck fracture after same level fall status post total left hip arthroplasty, postoperative day #3. 2. History of Parkinson's disease. 3. Osteoarthritis. 4. History of benign prostatic hypertrophy. 5. Macular degeneration and glaucoma. 6. Hypomagnesemia. PLAN: Continue supportive care including physical therapy and orthopedic issues addressed by Dr. Hill. The plan at this point is to transition to Swing Bed within the next couple of days. Magnesium is low, so I am going to replace that as well. #[id number] [facility]
[2018-02-02] MEDS: BIMATOPROST 0.01% OPHTH SCH (20:35)
[2018-02-02] MEDS: DOCUSATE CALCIUM 240 MG CAP PO SCH (20:35)
[2018-02-02] MEDS: NON-FORMULARY MEDICATION 1 EA MIS (Mirabegron [Myrbetriq] 50 MG) PO SCH (20:35)
[2018-02-02] MEDS ORDERED: BISACODYL SUPPOSITORY 10 MG PR ONE (21:00)
[2018-02-02] MEDS ORDERED: MAGNESIUM HYDROXIDE 30 ML UD PO ONE (21:00)
[2018-02-03] MEDS: HYDROcodone 5MG/APAP 325MG 1 EA TAB PO PRN ×2 (05:46→11:40)
[2018-02-03] MEDS: CARBIDOPA/LEVODOPA 25/100 1 TAB PO SCH ×2 (07:44→11:28)
[2018-02-03] MEDS: TOLTERODINE TARTRATE ER 4 MG CAP PO SCH (08:54)
[2018-02-03] MEDS: MAGNESIUM OXIDE 400 MG TAB PO SCH (08:54)
[2018-02-03] MEDS: SODIUM CHLORIDE 0.9% (FLUSH) 10 ML SYG IV SCH (08:55)
[2018-02-03] MEDS: PRESERVISION PO SCH (08:55)
[2018-02-03] MEDS: CALCIUM CARBONATE-VITAMIN D 500 MG TAB PO SCH (08:55)
[2018-02-03] MEDS ORDERED: TAMSULOSIN 0.4 MG CAP PO SCH (09:30)
--- NOTE | 2018-02-03 09:50 | PN ---
COLLABORATING PHYSICIAN: Kelvin Fang MD DATE: 02/03/18 SUBJECTIVE: The patient states he feels okay today. He is participating in physical therapy right now. Physical therapy says he is walking about 6 feet with two-man assist and even then, he is not fully upright. He also still has his Haney catheter. He did some bladder training yesterday. OBJECTIVE: VITAL SIGNS: Blood pressure 116/63. Heart rate 75. Respiratory rate 18. Temperature 98.5. Oxygen saturation 95%. GENERAL: Mr. Lin is an 82-year-old male patient in no active distress currently. HEENT: Normocephalic, atraumatic. Pupils are equal and reactive. No nasal drainage. Throat with moist mucosa. NECK: Supple. Midline trachea. No jugular venous distention. CHEST: Equal rise and fall of the chest with inspiration and expiration. LUNGS: Clear to auscultation bilaterally. CARDIOVASCULAR: Regular rate and rhythm. Normal S1, S2. ABDOMEN: Soft. Positive bowel sounds. EXTREMITIES: Lower extremities with no significant edema. Left hip with no signs or symptoms of infection. ASSESSMENT: 1. Left femoral neck fracture after same level fall status post total left hip arthroplasty, postoperative day #4. 2. History of Parkinson's disease. 3. Osteoarthritis. 4. History of benign prostatic hypertrophy. 5. Macular degeneration and glaucoma. PLAN: We will continue physical therapy. His progress is very slow and I feel like he will need a little bit more extensive physical therapy. I did discuss with him going to [place] to [facility] for more aggressive physical therapy. He says he is willing to do that, however, he wants to wait on his to get here tomorrow. I discussed with the staff and they are going to send a referral. I am also going to discontinue his catheter and start him on some Flomax as well. [facility][id number] [facility]
[2018-02-03] MEDS: ENOXAPARIN SODIUM 30 MG/0.3 ML SYG SUBCU SCH (11:28)
--- NOTE | 2018-02-03 14:16 | DS ---
SUPERVISING PHYSICIAN: Kelvin Fang MD ADMISSION DIAGNOSIS: 1. Left femoral neck fracture after same level fall. 2. History of Parkinson's disease. 3. History of osteoarthritis. 4. History of benign prostatic hypertrophy. 5. 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 DISCHARGE DIAGNOSIS: 1. Left femoral neck fracture after same level fall status post left total hip arthroplasty. 2. History of Parkinson's disease. 3. History of osteoarthritis. 4. History of benign prostatic hypertrophy. 5. 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 HOSPITAL COURSE: This is an 82-year-old male patient who was in his garage. There was wrinkled up carpet and he tripped over that onto his left side. He had pain in his left hip and thus went to the Emergency Room. He was found to have a femoral neck fracture in the Emergency Room and thus was admitted for surgical intervention by Dr. Hill. This surgery was done on January 30. There were no intraoperative complications. Throughout the admission, the patient really has not moved a whole lot. He has participated in physical therapy, but it is very short distances and needing quite a bit of assistance. We discussed with him further rehab to be done in [place] at [facility]. He agreed to this, but wanted to wait on his . His actually showed up today and not only agreed for him to go there, but she is going to participate herself as she has just had a surgery. Therefore, the patient will transfer to [facility] today via ambulance due to the fact that he really cannot get up and down by himself and needs quite a bit of assistance. The patient will be discharged in stable condition. Diet will be as per [facility] diet. Activity is as per physical therapy. MEDICATIONS: Please see the medication reconciliation list and I have added Xarelto. He was getting 30 mg q.12h. of Lovenox and I am transitioning over to Xarelto, so he will need to be started on this. He will need a total of 35 days of anticoagulation postoperatively. #[id number] [facility]TDD
[2018-02-03 14:19] VITALS: BP 101/58; TEMP 97.7; O2SAT 95
--- NOTE | 2018-02-11 08:28 | OP ---
DATE OF PROCEDURE: 01/30/18 PREOPERATIVE DIAGNOSIS: 1. Left femoral neck fracture. POSTOPERATIVE DIAGNOSIS: 1. Left femoral neck fracture. PROCEDURE: 1. Left hemiarthroplasty. SURGEON: Lenard Hill MD. RECEIVER SETTER: Greyson Forte CST, SA-Julia. ANESTHESIA: General. COMPLICATIONS: None. FINDINGS: Transverse femoral neck fracture. INDICATION: Mr. Lin has a history of fall on the day of presentation. He had the acute onset of pain at that time and was brought to the Emergency Room in [place]. X-rays at that time showed a fracture of the femoral neck and he was admitted. After discussing the risks, benefits and alternatives to operative intervention with him, informed consent was obtained. PROCEDURE: The patient was brought to the Operating Room and placed in supine position. Anesthesia was induced and the patient was transitioned into the lateral decubitus position. The leg and hemipelvis were sterilely prepped and draped and an incision was made centered on the greater trochanter with extension both proximally and distally. Dissection was carried down to the iliotibial band which was sharply incised along the course of its fibers. A Charnley retractor was placed and the abductor musculature was identified. The anterior one-third of the abductor musculature was elevated off the greater trochanter using electrocautery and the capsule was incised. The femoral head was removed and the primary femoral neck cut was made. The acetabulum was examined and found to be free of any significant defect, therefore attention was focused on the femur. The femoral canal was sequentially broached until an appropriate sized trial prosthesis was placed. A trial femoral head was placed and the hip was reduced. The hip was taken through a full range of motion and demonstrated stability without impingement or pending dislocation and the leg length appeared to be paresthesias. Following trialing, the trial component was removed and the femoral canal was prepared for cementation of the prosthesis. A distal cement restrictor was placed and the final component was cemented into place. The excess cement was removed and the remaining cement was allowed to cure. The final head was impacted and the hip was reduced, taken through a full range of motion, and found to be stable without impingement. The wound was thoroughly irrigated and the abductor musculature was reapproximated to the greater trochanter through drill holes using Ethibond. The repair was augmented with PDS suture and the iliotibial band was subsequently closed. The subcutaneous tissues were closed with a combination of running and interrupted subcuticular stitches, a sterile dressing was placed, and the patient was transitioned into the supine position. The patient was awoken from anesthesia and taken to the Recovery Room in stable condition. POSTOPERATIVE PLAN: The patient will be weight-bearing as tolerated on postoperative day 1. #[id number] [facility]TDD
== END 2018-02-03 16:10 | DRG 470 ==
LOC: ER 14:48 → MS 16:40
PROVIDERS: ADMIT Nurse Practitioner Acute Care; ATTEND Nurse Practitioner
PROC: 0SRS0J9 Replacement of Left Hip Joint, Femoral Surface with Synthetic Substitute, Cemented, Open Approach (ICD-10-PCS; principal; 2018-01-30 09:26)
DX: S72.032A Displaced midcervical fracture of left femur, initial encounter for closed fracture (principal); G20 Parkinson's disease; N40.0 Benign prostatic hyperplasia without lower urinary tract symptoms; M19.90 Unspecified osteoarthritis, unspecified site; H35.30 Unspecified macular degeneration; M47.9 Spondylosis, unspecified; H40.9 Unspecified glaucoma; E83.42 Hypomagnesemia; W01.0XXA Fall on same level from slipping, tripping and stumbling without subsequent striking against object, initial encounter; Y92.008 Other place in unspecified non-institutional (private) residence as the place of occurrence of the external cause; Z79.82 Long term (current) use of aspirin

== ENCOUNTER → 2018-03-02 | Outpatient (CLI) | payer MEDICARE, OTHER | LOC: GMAH 11:26 | PROVIDERS: ATTEND Family Medicine | DX: I10 Essential (primary) hypertension (principal); Z12.5 Encounter for screening for malignant neoplasm of prostate | CPT/HCPCS: 84443; 84550; G0103 ==

== ENCOUNTER 2019-12-23 18:07 | Emergency (ER) | payer MEDICARE, OTHER ==
--- NOTE | 2019-12-23 18:38 | ED.PDOC ---
History of Present Illness - General Time Seen by Provider: 12/23/19 18:11 Source: patient, RN notes reviewed, Vital Signs reviewed Exam Limitations: no limitations - History of Present Illness Initial Comments: 84 yo male with parkinsons presents with after he lost his balance and fell backwards. Did not hit his head, no LOC. Has had hx of bilateral hip replacement. complaining of bilateral hip pain. no back pain. no issues with bowel. Has chronic indwellling pagan catheter. Allergies/Adverse Reactions: Allergies NO KNOWN ALLERGY Allergy (Verified 01/29/18 16:57) Home Medications: Ambulatory Orders Bimatoprost 0.01% Ophth [Lumigan Ophth [place]] 2.5 ml OPHTH BEDTIME 01/31/15 Calcium Citrate-Vitamin D [Calcium Citrate W/Vitamin 250-50 mg-Unit] 1 tab PO BID 01/31/15 Carbidopa-Levodopa [Carbidopa/Levodopa 25-100 mg] 1 tab PO TIDFD 01/31/15 Multiple Vitamins W/ Minerals [Preservision Areds 2] 1 cap PO BID 01/31/15 Aspirin [Aspirin Adult Low Dose] 81 mg PO DAILY 05/27/16 Mirabegron [Myrbetriq] 50 mg PO DAILY 01/29/18 Solifenacin Succinate [Vesicare] 5 mg PO DAILY 01/29/18 Zoster Vaccine Recombinant Adj [Shingrix] 50 mcg IM MONTHLY 01/29/18 Docusate Calcium [Surfak] 240 mg PO BEDTIME cap 02/03/18 HYDROcodone 5MG/APAP 325MG [[place] 5/325] 1 ea PO Q4H PRN tab 02/03/18 Rivaroxaban [Xarelto] 10 mg PO DAILY 31 Days #31 tab 02/03/18 Tamsulosin [Flomax] 0.4 mg PO DAILY cap 02/03/18 Cefpodoxime Proxetil 200 mg PO BID #20 tab 12/23/19 Review of Systems - Review of Systems Constitutional: Denies: chills, fever, malaise EENTM: Denies: ear pain, ear discharge, throat swelling, mouth swelling Respiratory: Denies: cough, short of breath Cardiology: Denies: chest pain, palpitations Gastrointestinal/Abdominal: Denies: abdominal pain, diarrhea, nausea, vomiting Genitourinary: Denies: frequency Musculoskeletal: States: joint pain. Denies: back pain, joint swelling, muscle pain, neck pain Neurological: Denies: headache, numbness, paresthesia, tingling, tremors, weakness Endocrine: Denies: unexplained weight gain, unexplained weight loss Hematologic/Lymphatic: Denies: blood clots, easy bleeding, easy bruising Past Medical History (General) - Patient Medical History Hx Stroke: No Hx Asthma: No Hx of COPD: No Hx Cardiac Disorders: No Hx Congestive Heart Failure: No Hx Pacemaker: No Hx Hypertension: No Hx Thyroid Disease: No Hx Diabetes: Yes Hx Renal Disease: No Hx Cancer: No Hx of HIV: No Hx Hepatitis C: No Hx MRSA: No Hx Other - free text: Parkinson disease, glaucoma. MRSA Source:: Wound - Vaccination History Hx Tetanus, Diphtheria Vaccination: Yes Hx Influenza Vaccination: Yes Hx Pneumococcal Vaccination: Yes - Social History Hx Tobacco Use: No Hx Chewing Tobacco Use: No Hx Alcohol Use: No Hx Substance Use: No Hx Substance Use Treatment: No Hx Depression: No Hx Physical Abuse: No Hx Emotional Abuse: No Hx Suspected Abuse: No - Female History Patient : No Physical Exam - Physical Exam General Appearance: Alert, Comfortable, No apparent distress, Well Developed, Other - frail appearing. Head Injury: no evidence of injury, other - no henry sign no raccoon eyes Eye Exam: bilateral normal ENT Exam: no evidence of ENT injury, no dental injury Peripheral Pulses: radial,right: 2+, radial,left: 2+ Cardiovascular/Respiratory: regular rate, rhythm, normal peripheral pulses, no JVD, normal breath sounds, no respiratory distress Gastrointestinal/Abdominal: normal bowel sounds, non tender, soft, no organomegaly, no pulsatile mass Back Exam: normal inspection, no CVA tenderness, no vertebral tenderness Extremity Exam: no evidence of injury, normal range of motion, non-tender, no pedal edema, pelvis stable Neurologic: no motor/sensory deficits, alert, normal mood/affect, oriented x 3 Skin Exam: normal color, warm/dry - Adam Coma Score Best Eye Response ([place]): (4) open spontaneously Best Verbal Response ([place]): (5) oriented Best Motor Response ([place]): (6) obeys commands Adam Total: 15 Progress - Progress Progress: 12/23/19 22:08Xray hip/pelvis: no acute fracture or dislocation. 12/23/19 19:45 EKG STAT 12/23/19 21:30 URINE CULTURE W/COLONY COUNT Stat 12/23/19 21:49 cefTRIAXone SODIUM [Rocephin] 1 gm Sodium Chl 0.9% 50Ml Min-Bag+ [NS 50ml MINI-BAG+] 50 ml IVPB ONCE Laboratory Results WBC 13.0 K/mm3 (4.8-10.8) H 12/23/19 19:50 RBC 3.53 M/mm3 (4.70-6.10) L 12/23/19 19:50 Hgb 10.3 gm/dL (14.0-18.0) L 12/23/19 19:50 Hct 30.4 % (42.0-52.0) L 12/23/19 19:50 MCV 86.2 fl (80.0-94.0) 12/23/19 19:50 MCH 29.3 pg (27.0-31.0) 12/23/19 19:50 MCHC 34.0 g/dL (33.0-37.0) 12/23/19 19:50 RDW 16.5 % (11.5-14.5) H 12/23/19 19:50 Plt Count 304 K/mm3 (130-400) 12/23/19 19:50 MPV 7.7 fl (7.40-10.4) 12/23/19 19:50 Absolute Neuts (auto) 12.00 K/uL (1.8-6.8) H 12/23/19 19:50 Absolute Lymphs (auto) 0.20 K/uL (1.0-3.4) L 12/23/19 19:50 Absolute Monos (auto) 0.80 K/uL (0.2-0.8) 12/23/19 19:50 Absolute Eos (auto) 0.00 K/uL (0.0-0.4) 12/23/19 19:50 Absolute Basos (auto) 0.00 K/uL (0.0-0.1) 12/23/19 19:50 Neutrophils % 91.8 % (42.0-78.0) H 12/23/19 19:50 Lymphocytes % 1.7 % (20.0-50.0) L 12/23/19 19:50 Monocytes % 6.1 % (2.0-9.0) 12/23/19 19:50 Eosinophils % 0.1 % (1.0-5.0) L 12/23/19 19:50 Basophils % 0.3 % (0.0-2.0) 12/23/19 19:50 Sodium 133 mmol/L (135-145) L 12/23/19 19:50 Potassium 3.4 mmol/L (3.6-5.0) L 12/23/19 19:50 Chloride 96 mmol/L (101-111) L 12/23/19 19:50 Carbon Dioxide 23 mmol/L (21-31) 12/23/19 19:50 Anion Gap 17.4 (12-18) 12/23/19 19:50 BUN 24 mg/dL (7-18) H 12/23/19 19:50 Creatinine 0.97 mg/dL (0.6-1.3) 12/23/19 19:50 BUN/Creatinine Ratio 24.7 (10-20) H 12/23/19 19:50 Random Glucose 146 mg/dL (70-105) H 12/23/19 19:50 Serum Osmolality 273.1 mOsm/L (275-295) L 12/23/19 19:50 Calcium 8.4 mg/dL (8.4-10.2) 12/23/19 19:50 Troponin I < 0.02 ng/mL (0.01-0.05) 12/23/19 19:50 Urine Color Yellow (Yellow) 12/23/19 21:30 Urine Appearance Cloudy (Clear) 12/23/19 21:30 Urine pH >= 9.0 (4.5-7.8) H* 12/23/19 21:30 Ur Specific [place] 1.010 (1.005-1.030) 12/23/19 21:30 Urine Protein >=300 mg/dL H 12/23/19 21:30 Urine Glucose (UA) Negative mg/dL (Negative) 12/23/19: Urine Ketones Trace mg/dL (NEGATIVE) 12/23/19 21: Urine Blood Large (Negative) H 12/23/19 21:30 Urine Nitrite Positive H 12/23/19 21:30 Urine Bilirubin Negative (NEGATIVE) 12/23/19 21: Urine Urobilinogen 0.2 mg/dL (0.2-1.0) 12/23/19 21:30 Ur Leukocyte Esterase Moderate (Negative) H 12/23/19 21:30 Urine RBC 20-30 /hpf H 12/23/19 21:30 Urine WBC 10-20 /hpf H 12/23/19 21:30 Ur Epithelial Cells 0 /hpf 12/23/19 21:30 Amorphous Sediment 1+ 12/23/19 21:30 Urine Bacteria 3+ H 12/23/19 21:30 - Results/Orders Results/Orders: The data reviewed when caring for this patient included: nurse notes, prior records, etc. The history and assessments from nurses notes were reviewed and considered, and the patient's home medication list was also reviewed and considered. My assessment and the results of testing completed here in the ED were discussed with the patient/family. All questions were answered, and they express understanding of my assessment and the plan. They have been instructed to return if their symptoms worsen, and have been asked to follow up with their primary care physician to recheck today's presenting complaint. Strict return precautions given. I have reviewed medication, benefits, alternatives and side effects. Patient decided to proceed with medication. Patient has scheduled trip in 3 days. Due to illness, and being on antibiotics would like a note to excuse patient from trip. Yuliya Marinelli DO #[id number] - EKG/XRAY/CT EKG: Sinus, RBBB Comments: HR 91, LAFB, no sing cahnge when compared to 01/29/2018 CT: head without contrast: atrophy, no acute pathology noted. Departure - Departure Clinical Impression: Hip pain Fall Qualifiers: Encounter type: initial encounter Qualified Code(s): W19.XXXA - Unspecified fall, initial encounter UTI (urinary tract infection) due to urinary indwelling Pagan catheter Qualifiers: Indwelling urinary catheter type: indwelling urethral catheter Encounter type: initial encounter Qualified Code(s): T83.511A - Infection and inflammatory react ion due to indwelling urethral catheter, initial encounter Time of Disposition: 21:50 Disposition: Discharge to Home or Self Care Condition: Fair Instructions: Preventing Falls in the Older Adult, Osteoarthritis (DC), Urinary Tract Infection, Adult (DC), How to Prevent Catheter Associated Urinary Tract Infections Activity: walking as tolerated Referrals: Andrea Day MD [Primary Care Provider] - 1-2 Days Prescriptions: Cefpodoxime Proxetil 200 mg PO BID #20 tab Home Medications: Ambulatory Orders Bimatoprost 0.01% Ophth [Lumigan Ophth [place]] 2.5 ml OPHTH BEDTIME 01/31/15 Calcium Citrate-Vitamin D [Calcium Citrate W/Vitamin 250-50 mg-Unit] 1 tab PO BID 01/31/15 Carbidopa-Levodopa [Carbidopa/Levodopa 25-100 mg] 1 tab PO TIDFD 01/31/15 Multiple Vitamins W/ Minerals [Preservision Areds 2] 1 cap PO BID 01/31/15 Aspirin [Aspirin Adult Low Dose] 81 mg PO DAILY 05/27/16 Mirabegron [Myrbetriq] 50 mg PO DAILY 01/29/18 Solifenacin Succinate [Vesicare] 5 mg PO DAILY 01/29/18 Zoster Vaccine Recombinant Adj [Shingrix] 50 mcg IM MONTHLY 01/29/18 Docusate Calcium [Surfak] 240 mg PO BEDTIME cap 02/03/18 HYDROcodone 5MG/APAP 325MG [[place] 5/325] 1 ea PO Q4H PRN tab 02/03/18 Rivaroxaban [Xarelto] 10 mg PO DAILY 31 Days #31 tab 02/03/18 Tamsulosin [Flomax] 0.4 mg PO DAILY cap 02/03/18 Cefpodoxime Proxetil 200 mg PO BID #20 tab 12/23/19
--- NOTE | 2019-12-23 19:39 | RAD ---
EXAM DESCRIPTION: Hip,Left 2 Views CLINICAL HISTORY: fall COMPARISON: None FINDINGS: Two x-ray views of the left hip and frontal x-ray view of the pelvis were submitted. Patient is status post bilateral hip arthroplasty. Punctate calcifications within the pelvis compatible with phleboliths. There are degenerative changes of the lumbar spine. IMPRESSION: No acute fracture or dislocation. Electronically signed by: Juan Carlos Woodall MD 12/23/2019 7:37 PM CDT
--- NOTE | 2019-12-23 19:40 | CT ---
EXAM DESCRIPTION: Head CLINICAL HISTORY: fall COMPARISON: None Available. TECHNIQUE: Contiguous axial images of the brain were obtained without the administration of intravenous contrast.This exam was performed according to our departmental dose-optimization program, which includes automated exposure control, adjustment of the mA and/or kV according to patient size and/or use of iterative reconstruction technique. FINDINGS: There is no acute intracranial hemorrhage or mass effect. Areas of low attenuation in the periventricular and subcortical white matter are nonspecific but suggestive of small vessel disease. There is generalized atrophy. Ventricular system is within normal limits. There is adequate pablo-white matter differentiation. There is no skull fracture. The visualized paranasal sinuses and mastoid air cells are within normal limits. There is atherosclerosis. IMPRESSION: No acute intracranial abnormalities. Electronically signed by: Juan Carlos Woodall MD 12/23/2019 7:39 PM CDT
[2019-12-23] MEDS ORDERED: SODIUM CHLORIDE 0.9% 500ML 500 ML IVS ONE (19:41)
--- NOTE | 2019-12-23 19:42 | RAD ---
EXAM DESCRIPTION: Hip,Right 2 Views CLINICAL HISTORY: fall COMPARISON: None FINDINGS: Two x-ray views of the right hip were submitted. Patient is status post right hip arthroplasty. There is an old fracture of the inferior right pubic rami. Calcifications within the pelvis compatible with phleboliths. 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 There is no acute fracture or dislocation. IMPRESSION: No acute fracture or dislocation. Electronically signed by: Juan Carlos Woodall MD 12/23/2019 7:41 PM CDT
[2019-12-23] MEDS ORDERED: cefTRIAXone SODIUM 1 GM in SODIUM CHL 0.9% 50ML MIN-BAG+ 50 ML IVPB ONE (21:49)
[2019-12-23 22:30] VITALS: BP 108/60; TEMP 98.9; O2SAT 92
== END 2019-12-23 22:28 | disposition home or self-care (01) ==
LOC: ER 18:07
DX: M25.551 Pain in right hip (principal); M25.552 Pain in left hip; T83.511A Infection and inflammatory reaction due to indwelling urethral catheter, initial encounter; I45.10 Unspecified right bundle-branch block; I44.4 Left anterior fascicular block; G20 Parkinson's disease; E11.9 Type 2 diabetes mellitus without complications; Z96.643 Presence of artificial hip joint, bilateral; W18.30XA Fall on same level, unspecified, initial encounter; Y92.009 Unspecified place in unspecified non-institutional (private) residence as the place of occurrence of the external cause
CPT/HCPCS: 36415; 70450; 72170; 73502; 80048; 81001; 84484; 85025; 87086; 87088; 87186; 93005; J0696; J7040; J7050

== ENCOUNTER 2019-12-25 14:13 | Emergency (ER) | payer MEDICARE, OTHER ==
[2019-12-25 14:40] VITALS: BP 127/74; TEMP 97.8; O2SAT 95
[2019-12-25] MEDS ORDERED: HYDROcodone 7.5MG/APAP 325MG 1 EA TAB PO ONE (14:45)
--- NOTE | 2019-12-25 14:48 | ED.PDOC ---
History of Present Illness - General Chief Complaint: General Stated Complaint: L wrist pain, possible dalayed onset Time Seen by Provider: 12/25/19 14:17 Source: patient, family Exam Limitations: no limitations Additional Information: Patient states that he had a fall 2 days ago. He states that he had a slight pain in his left wrist at the time but it was improved after he was discharged f rom the ED. He states that he started having worsening of his pain the last 2 days and he has had some swelling. He states that he has had swelling in the left wrist multiple times in the past but it usually resolves after 1 to 2 days. He states that he is concerned because this time the swelling persists - History of Present Illness Timing/Duration: other - 2 days Severity: moderate Improving Factors: nothing Worsening Factors: nothing Associated Symptoms: denies symptoms Allergies/Adverse Reactions: Allergies NO KNOWN ALLERGY Allergy (Verified 12/25/19 14:44) Home Medications: Ambulatory Orders Bimatoprost 0.01% Ophth [Lumigan Ophth [place]] 2.5 ml OPHTH BEDTIME 01/31/15 Calcium Citrate-Vitamin D [Calcium Citrate W/Vitamin 250-50 mg-Unit] 1 tab PO BID 01/31/15 Carbidopa-Levodopa [Carbidopa/Levodopa 25-100 mg] 1 tab PO TIDFD 01/31/15 Multiple Vitamins W/ Minerals [Preservision Areds 2] 1 cap PO BID 01/31/15 Aspirin [Aspirin Adult Low Dose] 81 mg PO DAILY 05/27/16 Mirabegron [Myrbetriq] 50 mg PO DAILY 01/29/18 Solifenacin Succinate [Vesicare] 5 mg PO DAILY 01/29/18 Zoster Vaccine Recombinant Adj [Shingrix] 50 mcg IM MONTHLY 01/29/18 Docusate Calcium [Surfak] 240 mg PO BEDTIME cap 02/03/18 HYDROcodone 5MG/APAP 325MG [[place] 5/325] 1 ea PO Q4H PRN tab 02/03/18 Rivaroxaban [Xarelto] 10 mg PO DAILY 31 Days #31 tab 02/03/18 Tamsulosin [Flomax] 0.4 mg PO DAILY cap 02/03/18 Cefpodoxime Proxetil 200 mg PO BID #20 tab 12/23/19 Review of Systems - Review of Systems Constitutional: States: see HPI EENTM: Denies: eye pain, blurred vision Respiratory: Denies: cough, orthopnea, short of breath Cardiology: Denies: chest pain, palpitations, syncope Gastrointestinal/Abdominal: Denies: abdominal pain, constipation, diarrhea Genitourinary: States: frequency - catheter in place , other. Denies: discharge, hematuria Musculoskeletal: States: joint pain, joint swelling. Denies: back pain, muscle pain, muscle stiffness Skin: Denies: change in color, dryness, lesions Neurological: Denies: anxiety, depressed Endocrine: Denies: no symptoms reported Past Medical History (General) - Patient Medical History Hx Stroke: No Hx Asthma: No Hx of COPD: No Hx Cardiac Disorders: No Hx Congestive Heart Failure: No Hx Pacemaker: No Hx Hypertension: No Hx Thyroid Disease: No Hx Diabetes: Yes Hx Renal Disease: No Hx Cancer: No Hx of HIV: No Hx Hepatitis C: No Hx MRSA: No MRSA Source:: Wound - Vaccination History Hx Tetanus, Diphtheria Vaccination: Yes Hx Influenza Vaccination: Yes Hx Pneumococcal Vaccination: Yes - Social History Hx Tobacco Use: No Hx Chewing Tobacco Use: No Hx Alcohol Use: No Hx Substance Use: No Hx Substance Use Treatment: No Hx Depression: No Hx Physical Abuse: No Hx Emotional Abuse: No Hx Suspected Abuse: No - Female History Patient is a Female of Child Bearing Age (10 -59 yrs old): No Patient : No Family Medical History - Family History Mother Family History: Unknown Living Status: Hx Family Asthma: No Hx Family Congestive Heart Failure: No Physical Exam - Physical Exam General Appearance: Alert, Comfortable Eye Exam: bilateral normal Ears, Nose, Throat: normal ENT inspection, normal pharynx Neck: non-tender, full range of motion, supple Respiratory: chest non-tender, lungs clear, normal breath sounds, no respiratory distress Cardiovascular/Chest: normal peripheral pulses, regular rate, rhythm, no gallop, no JVD Peripheral Pulses: radial,right: 2+, radial,left: 2+, popliteal,right: 2+, popliteal,left: 2+ Gastrointestinal/Abdominal: normal bowel sounds, non tender, soft, no organomegaly Back Exam: no CVA tenderness, no vertebral tenderness Extremity: normal capillary refill, other - swelling and tenderness in wrist left Neurologic: no motor/sensory deficits, alert, normal mood/affect, oriented x 3 DTR: 2+: Brachioradialis, left, Brachioradialis, right Skin Exam: normal color, warm/dry, cyanosis, diaphoresis, jaundice, other - swelling at wrist , no signs of infection otherwise skin examinatin unremarkable Lymphatic: no adenopathy Progress - Progress Progress: 12/25/19 14:51 The patient is an 84-year-old male that presents emergency department complaints of left wrist pain. He states he fell 2 days ago had some pain in the left wrist that was significantly improved after he left the emergency department. He states he was given pain medication in the emergency department although review of EMR I do not see any pain meds was administered. However his pain has got worse in the last 2 days, He has also had swelling in the left wrist. States that he has had this in the past multiple times from his arthritis but usually resolves on its own. This time did not resolve his x-rays do not show any acute fractures or dislocation per my review. Brace placed pain control patient follow primary care physician 1 to 2 days. Departure - Departure Clinical Impression: Sprain of wrist, right Time of Disposition: 14:52 Disposition: Discharge to Home or Self Care Departure Forms: ED Discharge - Pt. Copy, Patient Portal Self Enrollment Instructions: Wrist Sprain (DC) Activity: other - as tolerated Home Medications: Ambulatory Orders Bimatoprost 0.01% Ophth [Lumigan Ophth [place]] 2.5 ml OPHTH BEDTIME 01/31/15 Calcium Citrate-Vitamin D [Calcium Citrate W/Vitamin 250-50 mg-Unit] 1 tab PO BID 01/31/15 Carbidopa-Levodopa [Carbidopa/Levodopa 25-100 mg] 1 tab PO TIDFD 01/31/15 Multiple Vitamins W/ Minerals [Preservision Areds 2] 1 cap PO BID 01/31/15 Aspirin [Aspirin Adult Low Dose] 81 mg PO DAILY 05/27/16 Mirabegron [Myrbetriq] 50 mg PO DAILY 01/29/18 Solifenacin Succinate [Vesicare] 5 mg PO DAILY 01/29/18 Zoster Vaccine Recombinant Adj [Shingrix] 50 mcg IM MONTHLY 01/29/18 Docusate Calcium [Surfak] 240 mg PO BEDTIME cap 02/03/18 HYDROcodone 5MG/APAP 325MG [[place] 5/325] 1 ea PO Q4H PRN tab 02/03/18 Rivaroxaban [Xarelto] 10 mg PO DAILY 31 Days #31 tab 02/03/18 Tamsulosin [Flomax] 0.4 mg PO DAILY cap 02/03/18 Cefpodoxime Proxetil 200 mg PO BID #20 tab 12/23/19 Additional Instructions: Please follow-up with your primary care physician in 1 to 2 days. Return to emergency department as needed Tylenol codeine prescription has been given for pain control please use as needed keep wrist brace in place, ice and elevation as indicated in the emergency department today
--- NOTE | 2019-12-25 14:58 | RAD ---
EXAM: Wrist Left 3 Views Left Wrist 3 Views HISTORY: wrist pain COMPARISON: None. TECHNIQUE: Left Wrist 3 Views FINDINGS: No fracture or dislocation. Diffuse decreased bone density. Left 1st carpometacarpal joint space narrowing. IMPRESSION: No radiographic evidence of left wrist fracture. Electronically signed by: Jimmie Cross MD 12/25/2019 2:57 PM CDT
== END 2019-12-25 15:05 | disposition home or self-care (01) ==
LOC: ER 14:13
DX: S63.502A Unspecified sprain of left wrist, initial encounter (principal); E11.9 Type 2 diabetes mellitus without complications; Z79.899 Other long term (current) drug therapy; Z79.82 Long term (current) use of aspirin; W19.XXXA Unspecified fall, initial encounter; Y92.9 Unspecified place or not applicable

== ENCOUNTER → 2019-12-28 | Outpatient (CLI) | payer MEDICARE | LOC: GMA MATASK 11:01 | PROVIDERS: ATTEND Family Medicine | DX: R19.7 Diarrhea, unspecified (principal) ==

== ENCOUNTER → 2020-01-11 | Outpatient (CLI) | payer MEDICARE | LOC: YCHH 11:35 | PROVIDERS: ATTEND Family Medicine | DX: N39.0 Urinary tract infection, site not specified (principal); N40.1 Benign prostatic hyperplasia with lower urinary tract symptoms ==

== ENCOUNTER → 2020-01-12 | Outpatient (CLI) | payer MEDICARE ==
--- NOTE | 2020-01-12 14:57 | US ---
EXAM DESCRIPTION: Venous,Upper Extremity RT: ULTRASOUND. CLINICAL HISTORY: sprain of right wrist. Soft tissue swelling. COMPARISON: None Available. TECHNIQUE: Two -dimensional and doppler sonographic evaluation of the deep venous system of the left upper extremity. FINDINGS: Doppler evaluation shows decreased/absent color flow in the left internal jugular vein which is also distended. Decreased/absent venous waveforms. Grayscale evaluation shows echogenic material with slow movement in the vessel which is distended. Vein is not compressible with the transducer. Doppler also shows normal color flow and normal phasicity and augmentation of the left subclavian, axillary, basilic, brachial, radial vein and ulnar vein. The cephalic vein was not seen. The left upper extremity deep veins showed normal occlusion with transducer pressure. Two-dimensional survey showed no echogenic thrombus within these veins. IMPRESSION: Duplex ultrasound evaluation of the left upper extremity deep venous system showing decreased/absent color flow and venous waveforms. Grayscale evaluation showing thrombosis and slow movement of blood in the left internal jugular vein . The vein is distended and noncompressible. No thrombosis in the veins of the left shoulder or left upper extremity. CRITICAL COMMUNICATION: The critical value was communicated by text message from Dr. Walters at 1206 hours, on January 12, 2020, to Dr. Hernan Guillaume with text acknowledgment by Dr. Hernan Guillaume at approximately same time, on same date.. The patient was returned to Dr. Guillaume's office, accompanied by family member. Electronically signed by: Greyson Walters MD 01/12/2020 2:55 PM [employer]
== END ==
LOC: US 10:31
PROVIDERS: ATTEND Family Medicine
DX: I82.C12 Acute embolism and thrombosis of left internal jugular vein (principal); S63.501A Unspecified sprain of right wrist, initial encounter

== ENCOUNTER → 2020-02-07 | Outpatient (CLI) | payer MEDICARE | LOC: YCHH 13:55 | PROVIDERS: ATTEND Family Medicine | DX: N39.0 Urinary tract infection, site not specified (principal) ==

== ENCOUNTER → 2020-02-08 | Outpatient (CLI) | payer MEDICARE | LOC: YCHH 09:56 | PROVIDERS: ATTEND Family Medicine | DX: R31.0 Gross hematuria (principal); D64.9 Anemia, unspecified ==

== ENCOUNTER → 2020-02-14 | Outpatient (CLI) | payer MEDICARE | LOC: YCHH 13:34 | PROVIDERS: ATTEND Family Medicine | DX: D64.9 Anemia, unspecified (principal) ==

== ENCOUNTER 2020-03-15 13:55 | Emergency (ER) | payer MEDICARE ==
--- NOTE | 2020-03-15 14:05 | ED.PDOC ---
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 DENIES PAIN FEVER OR OTHER SYMPTOMS. Allergies/Adverse Reactions: Allergies NO KNOWN ALLERGY Allergy (Verified 12/25/19 14:44) Home Medications: Ambulatory Orders Bimatoprost 0.01% Ophth [Lumigan Ophth [place]] 2.5 ml OPHTH BEDTIME 01/31/15 Calcium Citrate-Vitamin D [Calcium Citrate W/Vitamin 250-50 mg-Unit] 1 tab PO BID 01/31/15 Carbidopa-Levodopa [Carbidopa/Levodopa 25-100 mg] 1 tab PO TIDFD 01/31/15 Multiple Vitamins W/ Minerals [Preservision Areds 2] 1 cap PO BID 01/31/15 Aspirin [Aspirin Adult Low Dose] 81 mg PO DAILY 05/27/16 Mirabegron [Myrbetriq] 50 mg PO DAILY 01/29/18 Solifenacin Succinate [Vesicare] 5 mg PO DAILY 01/29/18 Zoster Vaccine Recombinant Adj [Shingrix] 50 mcg IM MONTHLY 01/29/18 Docusate Calcium [Surfak] 240 mg PO BEDTIME cap 02/03/18 HYDROcodone 5MG/APAP 325MG [Agate 5/325] 1 ea PO Q4H PRN tab 02/03/18 Rivaroxaban [Xarelto] 10 mg PO DAILY 31 Days #31 tab 02/03/18 Tamsulosin [Flomax] 0.4 mg PO DAILY cap 02/03/18 Cefpodoxime Proxetil 200 mg PO BID #20 tab 12/23/19 Ciprofloxacin [Cipro] 500 mg PO BID #10 tab 03/15/20 Review of Systems - Review of Systems Constitutional: States: no symptoms reported EENTM: States: no symptoms reported Respiratory: States: no symptoms reported Cardiology: States: no symptoms reported Gastrointestinal/Abdominal: States: no symptoms reported Genitourinary: States: see HPI Musculoskeletal: States: no symptoms reported Skin: States: no symptoms reported Past Medical History (General) - Patient Medical History Hx Stroke: No Hx Asthma: No Hx of COPD: No Hx Cardiac Disorders: No Hx Congestive Heart Failure: No Hx Pacemaker: No Hx Hypertension: No Hx Thyroid Disease: No Hx Diabetes: Yes Hx Renal Disease: No Hx Cancer: No Hx of HIV: No Hx Hepatitis C: No Hx MRSA: No MRSA Source:: Wound - Vaccination History Hx Tetanus, Diphtheria Vaccination: Yes Hx Influenza Vaccination: Yes Hx Pneumococcal Vaccination: Yes - Social History Hx Tobacco Use: No Hx Chewing Tobacco Use: No Hx Alcohol Use: No Hx Substance Use: No Hx Substance Use Treatment: No Hx Depression: No Hx Physical Abuse: No Hx Emotional Abuse: No Hx Suspected Abuse: No - Female History Patient : No Family Medical History - Family History Mother Family History: Unknown Living Status: Hx Family Asthma: No Hx Family Congestive Heart Failure: No Physical Exam - Physical Exam General Appearance: Alert, Comfortable, Frail, No apparent distress Eyes, Ears, Nose, Throat Exam: PERRL/EOMI Neck: non-tender, full range of motion, supple Cardiovascular/Respiratory: regular rate, rhythm, no M/R/G, normal peripheral pulses Gastrointestinal/Abdominal: normal bowel sounds, non tender, soft Male Genital Exam: normal genitalia, no hernia Extremity: normal range of motion, non-tender, normal inspection Departure - Departure Clinical Impression: Urethritis, Cystitis Time of Disposition: 14:54 Disposition: Discharge to Home or Self Care Condition: Good Departure Forms: ED Discharge - Pt. Copy, Patient Portal Self Enrollment Instructions: Blood in the Urine (Hematuria) in Adults Referrals: Hernan Sanders MD [Primary Care Provider] - 1-2 Weeks Prescriptions: Ciprofloxacin [Cipro] 500 mg PO BID #10 tab Home Medications: Ambulatory Orders Bimatoprost 0.01% Ophth [Lumigan Ophth [place]] 2.5 ml OPHTH BEDTIME 01/31/15 Calcium Citrate-Vitamin D [Calcium Citrate W/Vitamin 250-50 mg-Unit] 1 tab PO BID 01/31/15 Carbidopa-Levodopa [Carbidopa/Levodopa 25-100 mg] 1 tab PO TIDFD 01/31/15 Multiple Vitamins W/ Minerals [Preservision Areds 2] 1 cap PO BID 01/31/15 Aspirin [Aspirin Adult Low Dose] 81 mg PO DAILY 05/27/16 Mirabegron [Myrbetriq] 50 mg PO DAILY 01/29/18 Solifenacin Succinate [Vesicare] 5 mg PO DAILY 01/29/18 Zoster Vaccine Recombinant Adj [Shingrix] 50 mcg IM MONTHLY 01/29/18 Docusate Calcium [Surfak] 240 mg PO BEDTIME cap 02/03/18 HYDROcodone 5MG/APAP 325MG [Agate 5/325] 1 ea PO Q4H PRN tab 02/03/18 Rivaroxaban [Xarelto] 10 mg PO DAILY 31 Days #31 tab 02/03/18 Tamsulosin [Flomax] 0.4 mg PO DAILY cap 02/03/18 Cefpodoxime Proxetil 200 mg PO BID #20 tab 12/23/19 Ciprofloxacin [Cipro] 500 mg PO BID #10 tab 03/15/20 Additional Instructions: CONTACT YOUR PCP OR UROLOGIST AND ARRANGE FOLLOW UP FOR BRENDA.
[2020-03-15 15:26] VITALS: BP 128/68; TEMP 98.3; O2SAT 98
== END 2020-03-15 15:23 | disposition home or self-care (01) ==
LOC: ER 13:55
DX: N30.91 Cystitis, unspecified with hematuria (principal); N34.2 Other urethritis; E11.9 Type 2 diabetes mellitus without complications; Z79.82 Long term (current) use of aspirin; Z79.899 Other long term (current) drug therapy

== ENCOUNTER 2020-03-15 21:50 | Emergency (ER) | payer MEDICARE ==
[2020-03-15 22:44] VITALS: TEMP 98.9
--- NOTE | 2020-03-15 23:14 | ED.PDOC ---
History of Present Illness - General Chief Complaint: Problem Stated Complaint: patient C/O bleeding around catheter at penis Time Seen by Provider: 03/15/20 21:57 Source: patient, RN notes reviewed, Vital Signs reviewed Exam Limitations: no limitations - History of Present Illness Initial Comments: PATIENT PRESENTS WITH SAME SYMPTOMS FROM EARLIER TODAY, WANTS TO BE RECHECKED. REPORTS THAT SHE IS CONCERNED THAT HIS BLEEDING IS GOING TO BE HARD TO CARE FOR AT HOME FROM A HOUSECLEANING PERSPECTIVE. PT CURRENT DIAPER HAS BEEN ON HIM FOR 3-5 HOURS. DENIES LIGHT HEADED, SOB. STATES BLEEDING IN DIAPER IS CONSISTENT WITH WHAT HE HAS AT HOME Timing/Duration: this morning Quality: mild Radiation: none Activites at Onset: none Allergies/Adverse Reactions: Allergies NO KNOWN ALLERGY Allergy (Verified 12/25/19 14:44) Home Medications: Ambulatory Orders Bimatoprost 0.01% Ophth [Lumigan Ophth [place]] 2.5 ml OPHTH BEDTIME 01/31/15 Calcium Citrate-Vitamin D [Calcium Citrate W/Vitamin 250-50 mg-Unit] 1 tab PO BID 01/31/15 Carbidopa-Levodopa [Carbidopa/Levodopa 25-100 mg] 1 tab PO TIDFD 01/31/15 Multiple Vitamins W/ Minerals [Preservision Areds 2] 1 cap PO BID 01/31/15 Aspirin [Aspirin Adult Low Dose] 81 mg PO DAILY 05/27/16 Mirabegron [Myrbetriq] 50 mg PO DAILY 01/29/18 Solifenacin Succinate [Vesicare] 5 mg PO DAILY 01/29/18 Zoster Vaccine Recombinant Adj [Shingrix] 50 mcg IM MONTHLY 01/29/18 Docusate Calcium [Surfak] 240 mg PO BEDTIME cap 02/03/18 HYDROcodone 5MG/APAP 325MG [Mason 5/325] 1 ea PO Q4H PRN tab 02/03/18 Rivaroxaban [Xarelto] 10 mg PO DAILY 31 Days #31 tab 02/03/18 Tamsulosin [Flomax] 0.4 mg PO DAILY cap 02/03/18 Cefpodoxime Proxetil 200 mg PO BID #20 tab 12/23/19 Ciprofloxacin [Cipro] 500 mg PO BID #10 tab 03/15/20 Review of Systems - Review of Systems Constitutional: States: no symptoms reported EENTM: States: no symptoms reported Respiratory: States: no symptoms reported Cardiology: States: no symptoms reported Gastrointestinal/Abdominal: States: no symptoms reported Genitourinary: States: see HPI Musculoskeletal: States: no symptoms reported Past Medical History (General) - Patient Medical History Hx Seizures: No Hx Stroke: No Hx Dementia: No Hx Asthma: No Hx of COPD: No Hx Cardiac Disorders: No Hx Congestive Heart Failure: No Hx Pacemaker: No Hx Hypertension: No Hx Thyroid Disease: No Hx Diabetes: No Hx Gastroesophageal Reflux: No Hx Renal Disease: No Hx Cancer: No Hx of HIV: No Hx Hepatitis C: No Hx MRSA: No MRSA Source:: Wound - Vaccination History Hx Tetanus, Diphtheria Vaccination: Yes Hx Influenza Vaccination: Yes Hx Pneumococcal Vaccination: Yes - Social History Hx Tobacco Use: No Hx Chewing Tobacco Use: No Hx Alcohol Use: No Hx Substance Use: No Hx Substance Use Treatment: No Hx Depression: No Hx Physical Abuse: No Hx Emotional Abuse: No Hx Suspected Abuse: No - Female History Patient : No Family Medical History - Family History Mother Family History: Unknown Living Status: Hx Family Asthma: No Hx Family Congestive Heart Failure: No Physical Exam - Physical Exam General Appearance: Alert, Frail, Well Groomed, Well Hydrated Eyes, Ears, Nose, Throat Exam: normal ENT inspection, TMs normal, pharynx normal Cardiovascular/Respiratory: regular rate, rhythm, no M/R/G, normal peripheral pulses, no JVD, normal breath sounds, no respiratory distress Gastrointestinal/Abdominal: normal bowel sounds, non tender, soft, no organomegaly Male Genital Exam: other - ESTIMATE 30 -45 CC OF BLOOD IN DIAPER MIXED WITH URINE. THERE IS NO CLOTS, JUST BLOOD STAINING OF THE DIAPER. Neurologic: no motor/sensory deficits, alert, normal mood/affect, oriented x 3 Progress - Progress Progress: 03/15/20 23:01 BASED ON DIRECT INSPECTION OF THE BLEEDING IN HIS DIAPER AND CATHETER , THE AMOUNT OF BLOOD IN DIAPER, IT IS NEGLIGIBLE SO FAR. THIS DOES NOT MEAN FOR ABSOLUTE CERTAINTY THAT HE COULD NOT ULTIMATELY HAVE SIGNIFICANT BLEEDING BUT SO FAR HE HAS NOT AND NO INTERVENTION IS INDICATED AT THIS TIME. SERIAL H/H SHOWS NO MEASUABLE DROP IN HB. 03/16/20 00:34 EXPLAINED TO AGAIN THAT HIS BLEEDING IS MINIMAL AT THIS POINT AND NOT A CAUSE FOR CONCERN, IT IS LIKELY FROM IRRITATION AT CATHETER INSERTION DONE YESTERDAY WHEN THE BLEEDING STARTED, HE ALSO HAS A UTI WHICH MAY BE ADDING TO THE BLEEDING. IT IS UNLIKELY THE BLEEDING WILL BE OF ANY CONSEQUENCE BUT SHE MAY RETURN TO THE ER ANYTIME TO HAVE REAssessed. SHE VOICES UNDERSTANDING. Departure - Departure Clinical Impression: UTI (urinary tract infection), Hematuria Time of Disposition: 23:15 Disposition: Discharge to Home or Self Care Departure Forms: ED Discharge - Pt. Copy, Patient Portal Self Enrollment Referrals: Hernan Sanders MD [Primary Care Provider] - 1-2 Weeks Home Medications: Ambulatory Orders Bimatoprost 0.01% Ophth [Lumigan Ophth [place]] 2.5 ml OPHTH BEDTIME 01/31/15 Calcium Citrate-Vitamin D [Calcium Citrate W/Vitamin 250-50 mg-Unit] 1 tab PO BID 01/31/15 Carbidopa-Levodopa [Carbidopa/Levodopa 25-100 mg] 1 tab PO TIDFD 01/31/15 Multiple Vitamins W/ Minerals [Preservision Areds 2] 1 cap PO BID 01/31/15 Aspirin [Aspirin Adult Low Dose] 81 mg PO DAILY 05/27/16 Mirabegron [Myrbetriq] 50 mg PO DAILY 01/29/18 Solifenacin Succinate [Vesicare] 5 mg PO DAILY 01/29/18 Zoster Vaccine Recombinant Adj [Shingrix] 50 mcg IM MONTHLY 01/29/18 Docusate Calcium [Surfak] 240 mg PO BEDTIME cap 02/03/18 HYDROcodone 5MG/APAP 325MG [Mason 5/325] 1 ea PO Q4H PRN tab 02/03/18 Rivaroxaban [Xarelto] 10 mg PO DAILY 31 Days #31 tab 02/03/18 Tamsulosin [Flomax] 0.4 mg PO DAILY cap 02/03/18 Cefpodoxime Proxetil 200 mg PO BID #20 tab 12/23/19 Ciprofloxacin [Cipro] 500 mg PO BID #10 tab 03/15/20 Additional Instructions: FOLLOW UP WITH YOUR UROLOGIST TOMORROW.
[2020-03-15 23:38] VITALS: BP 110/67; O2SAT 97
== END 2020-03-15 23:37 | disposition home or self-care (01) ==
LOC: ER 21:50
DX: N39.0 Urinary tract infection, site not specified (principal); R31.0 Gross hematuria; Z79.01 Long term (current) use of anticoagulants; Z79.82 Long term (current) use of aspirin; Z79.899 Other long term (current) drug therapy